=== PATIENT | male | born 1975 | race Caucasian/White ===

== ENCOUNTER → 2024-05-10 07:43 | Outpatient (REF) | payer BC, SELFPAY | LOC: HWRAD 07:43 | PROVIDERS: ATTENDING PHYSICIAN Internal Medicine; FAMILY PHYSICIAN Internal Medicine | DX: R76.8 Other specified abnormal immunological findings in serum (principal); R80.9 Proteinuria, unspecified | CPT/HCPCS: 74176 ==

== ENCOUNTER 2024-09-17 20:49 | Emergency (ER) | payer BC, SELFPAY ==
[2024-09-17 20:53] VITALS: BP 129/88
--- NOTE | 2024-09-17 23:37 | ED.GENMED ---
History of Present Illness
General
Chief Complaint: Nasal Problem
Source: patient
Exam Limitations: none
Time Seen by Provider: 09/17/24 23:29
Nursing documentation reviewed up to this point in time: agreed with
History of Present Illness
History of Present Illness:
48-year-old male presenting to the emergency department today with concerns of ongoing nasal congestion over the past 3 weeks. Seen in urgent care 4 days ago advised to use saline mist denies any fevers nausea vomiting diarrhea able to tolerate by
mouth.
Review of Systems
Review of Systems
Allergies reviewed?: Yes
All Other Systems: ROS reviewed and negative except as documented in HPI and ROS
Phy Exam
Physical Exam
Physical Exam:
GENERAL: Alert , in no apparent distress
EYE: pupils equal and reactive
NECK: Supple, no significant adenopathy.
ENT: Swollen boggy nasal turbinates, postnasal drip o/p clr, mmm.
CARDIAC: Regular rate and rhythm .
LUNGS: Clear breath sounds bilaterally, no acute respiratory distress, no wheezes/rales/rhonchi
ABDOMEN: Soft, without focal tenderness, no r/g, no cvat
NEUROLOGICAL: Alert and oriented, no focal neuro deficits
SKIN: Warm and dry, skin intact.
MUSCULOSKELETAL: No edema, well perfused.
PSYCH: Normal and appropriate interaction.
Course
Vital Signs
Initial and Last Documented VS:
Initial Vital Signs
Temp Pulse Resp BP Pulse Ox
98.5 F 83 16 129/88 96
09/17/24 20:53 09/17/24 20:53 09/17/24 20:53 09/17/24 20:53 09/17/24 20:53
Last Documented Vital Signs
Temp Pulse Resp BP Pulse Ox
98.5 F 83 16 129/88 96
09/17/24 20:53 09/17/24 20:53 09/17/24 20:53 09/17/24 20:53 09/17/24 20:53
MDM/Problems Addressed
MDM/Problems Addressed:
48-year-old male presenting to the emergency department today with concerns of upper respiratory symptoms over the past 3 weeks. Does have significant ongoing swelling to the nasal turbinates. Patient was given dose of steroid to help with
inflammation otherwise no evidence of infection no fevers no significant pain. Normal-appearing posterior pharynx other than some postnasal drip. Lungs are clear. Otherwise stable for outpatient follow-up. Return precautions given.
*Critical Care Note
Total Time (30-74mins, 75-104mins- exclusive of procedures): Not Applicable
ED Attending Note
-
Portions of this chart may have been created with voice recognition software.� Occasional wrong word or��sound alike� substitutions may have occurred due to the inherent limitations of voice recognition software.
Discharge Plan
Departure
Patient Disposition: Home (Routine Discharge)
Date of Disposition: 09/17/24
Time of Disposition: 23:39
Patient with high blood pressure during this ER visit?: No
Condition: Good
Covid-19: Not Applicable
Discharge Problem:
Acute rhinitis
Instructions: Cough, runny nose, and colds
Prescriptions:
New
prednisone 50 mg tablet
50 mg PO DAILY 4 Days Qty: 4 0RF
diphenhydramine HCl 25 mg capsule
25 mg PO HS PRN (Reason: Sleep) Qty: 7 0RF
No Action
Claritin-D 24 Hour 10-240 mg Tablet Extended Release 24 Hr
1 tab PO DAILY
fluticasone propionate [Flonase] 50 mcg/actuation [place],Suspension
1 spray INTRANASAL BID
Referrals:
Graeme Dove DO [Family Provider] -
Activity Restrictions/Additional Instructions:
You came to the emergency department today with concerns of ongoing upper respiratory symptoms. Please take the steroids as prescribed and also use the Benadryl to help with sleep. Please follow-up closely with your primary care doctor in the next
1 to 2 weeks. Return to the emergency department for any worsening, new or concerning symptoms.
Interventions
Interventions:
*Risk Screen - Suicide Last Done: 09/17/24 20:53
*Neglect/Abuse Screening Last Done: 09/17/24 20:53
Discharge Date and Time
Print Language: BERMUDIAN
[2024-09-17] MEDS: DECADRON 10 MG PO (23:47)
[2024-09-17 23:50] VITALS: BP 129/79
== END 2024-09-17 23:53 | disposition home or self-care (01) ==
LOC: EMR 20:49
PROVIDERS: EMERGENCY PHYSICIAN Emergency Medicine; FAMILY PHYSICIAN Internal Medicine
DX: J00 Acute nasopharyngitis [common cold] (principal)
CPT/HCPCS: 99282

== ENCOUNTER 2024-11-21 21:31 | Inpatient (IN) | payer BC, SELFPAY ==
[2024-11-21] VITALS (9 sets, daily range): BP systolic 109–143; BP diastolic 56–83; BMI 29.5
[2024-11-21 15:47] LABS: % Basophils 0.2 % (0-2); % Immature Granulocytes 0.7 % (0-0.5); % Lymphocytes 2.6 % (20.5-51.1); % Neutrophils 93.5 % (42.2-75.2); Absolute Immature Granulocytes 0.1 10^3/uL (0-0.05); Absolute Lymphocytes 0.5 10^3/uL (1.2-3.4); Absolute Monocytes 0.6 10^3/uL (0.1-0.6); Absolute Neutrophils 18.3 10^3/uL (1.4-6.5); Hematocrit 25.5 % (39.0-52.0); Hemoglobin 8.1 g/dL (13.0-18.0); Mean Corp Hgb Conc. 31.8 g/dL (33.0-37.0); Mean Corpuscular Hgb 24.6 pg (27.0-31.0); Mean Corpuscular Volume 77.5 fL (80.0-94.0); Mean Platelet Volume 10.3 fL (7.4-10.4); Nucleated Red Blood Cells % 0 % (-); Platelet Count 363 10^3/uL (130-400); Red Blood Cell Count 3.29 10^6/uL (4.70-6.10); Red Cell Dist. Width 14.5 % (11.5-14.5); White Blood Cell Count 19.5 10^3/uL (4.8-10.8)
[2024-11-21 15:58] LABS: Lactic Acid 1.4 mmol/L (0.7-2.0)
[2024-11-21 15:59] LABS: ALT (SGPT) 19 U/L (0-50); AST (SGOT) 20 U/L (17-59); Albumin 3.2 g/dl (3.5-5.0); Alkaline Phosphatase 76 U/L (38-126); Blood Urea Nitrogen 42 mg/dl (9-20); Calcium 8.2 mg/dl (8.4-10.2); Carbon Dioxide 18 mmol/L (22-30); Chloride 106 mmol/L (98-107); Glucose 147 mg/dl (70-99); Potassium 4.8 mmol/L (3.5-5.1); Sodium 135 mmol/L (135-145); Total Bilirubin 0.9 mg/dl (0.2-1.3); Total Protein 5.9 g/dl (6.3-8.2); eGFR 20.52
--- NOTE | 2024-11-21 17:58 | ED.GENMED ---
History of Present Illness
<Philippe Urbano Jr., PA-C - Last Filed: 11/21/24 19:33>
General
Chief Complaint: Abnormal Lab Value
Source: patient
Exam Limitations: none
Time Seen by Provider: 11/21/24 17:11
Nursing documentation reviewed up to this point in time: agreed with
History of Present Illness
History of Present Illness:
49-year-old male past medical history of kidney disease presenting to the emergency department today with concerns of hemoptysis over the past 2 days. Was recently in [place] last week flew home 3 days ago had a slight cough initially but
worsening cough shortness of breath and hemoptysis over the last 2 days. Worsening today. An outpatient chest x-ray showing multi focal pneumonia which he was told to go to the ER for. Additionally had outpatient lab with an elevated dimer of
5.87. He claims to have ongoing shortness of breath now no fevers no specific chest pain no vomiting.
Review of Systems
<hPilippe Urbano Jr., PA-C - Last Filed: 11/21/24 19:33>
Review of Systems
Allergies reviewed?: Yes
All Other Systems: ROS reviewed and negative except as documented in HPI and ROS
Phy Exam
<Philippe Urbano Jr., PA-C - Last Filed: 11/21/24 19:33>
Physical Exam
Physical Exam:
GENERAL: Alert , in no apparent distress
EYE: pupils equal and reactive
NECK: Supple, no significant adenopathy.
ENT: o/p clr, mmm.
CARDIAC: Regular rate and rhythm .
LUNGS: Clear breath sounds bilaterally, no acute respiratory distress, no wheezes/rales/rhonchi
ABDOMEN: Soft, without focal tenderness, no r/g, no cvat
NEUROLOGICAL: Alert and oriented, no focal neuro deficits
SKIN: Pale warm and dry, skin intact.
MUSCULOSKELETAL: No edema, well perfused.
PSYCH: Normal and appropriate interaction.
Course
<Philippe Urbano Jr., PA-C - Last Filed: 11/21/24 19:33>
Orders/Labs/Results
Orders:
Orders
11/21/24 15:32
Electrocardiogram (*1) Urgent
Reason for Study: Shortness of Breath
11/21/24 15:33
EKG- Treatment ONCE
11/21/24 15:38
Complete Blood Count/With Diff Urgent
Comprehensive Metabolic Panel Urgent
Lactic Acid Urgent
11/21/24 17:50
Venous Doppler Lwr Ext Bilat [US Periph Venous LOWER Ext Maurilio] Urgent
Comment:
Reason For Exam: hemoptysis elevated dimer, poor renal function
11/21/24 17:53
Azithromycin 500 mg/250 ml [Zithromax Infusion] 500 mg in 250 ml IV NOW
CefTRIAXone [Rocephin] 2,000 mg IV NOW STA
11/21/24 17:54
0.9% Sodium Chloride 500 ml [Nss] 500 ml IV BOLUS
11/21/24 18:05
Bladder Scan- Treatment ONCE
11/21/24 18:16
Sterile Water [Sterile Water For Injection] 20 ml .ROUTE .STK-MED
11/21/24 18:26
Type+Screen Urgent
COVID-19 Antigen Urgent
Source: Nasal Swab
Influenza A+B Rapid Molecular Urgent
CAROL Source: Nasal Swab
Specimen Description:
11/21/24 18:48
ABO2 Urgent
BBK Wristband Number:
Associate notified that ABO2 has been ordered: [id number]
Date: 11/21/24
Time: 18:49
Barback ID: [id number]
11/21/24 19:31
Urinalysis Reflex To Culture Urgent
Date Specimen was Collected: 11/21/24
Time Specimen was Collected: 19:30
Abnormal Lab Results
11/21/24
15:38
WBC 19.5 H 10^3/uL
(4.8-10.8)
RBC 3.29 L 10^6/uL
(4.70-6.10)
Hgb 8.1 L g/dL
(13.0-18.0)
Hct 25.5 L %
(39.0-52.0)
MCV 77.5 L fL
(80.0-94.0)
MCH 24.6 L pg
(27.0-31.0)
MCHC 31.8 L g/dL
(33.0-37.0)
Abs Immat Gran (auto) 0.1 H 10^3/uL
(0-0.05)
Absolute Neuts (auto) 18.3 H 10^3/uL
(1.4-6.5)
Absolute Lymphs (auto) 0.5 L 10^3/uL
(1.2-3.4)
Immature Gran % 0.7 H %
(0-0.5)
Neutrophils % 93.5 H %
(42.2-75.2)
Lymphocytes % 2.6 L %
(20.5-51.1)
Carbon Dioxide 18 L mmol/L
(22-30)
BUN 42 H mg/dl
(9-20)
Creatinine 3.5 H mg/dL
(0.7-1.3)
Glucose 147 H mg/dl
(70-99)
Calcium 8.2 L mg/dl
(8.4-10.2)
Total Protein 5.9 L g/dl
(6.3-8.2)
Albumin 3.2 L g/dl
(3.5-5.0)
11/21/24 15:38
11/21/24 15:38
Vital Signs
Initial and Last Documented VS:
Initial Vital Signs
Temp Pulse Resp BP Pulse Ox
98.0 F 87 16 143/80 94
11/21/24 15:29 11/21/24 15:29 11/21/24 15:29 11/21/24 15:29 11/21/24 15:29
Last Documented Vital Signs
Temp Pulse Resp BP Pulse Ox
98.8 F 77 27 114/78 94
11/21/24 17:46 11/21/24 18:30 11/21/24 18:30 11/21/24 18:00 11/21/24 18:30
<Daniel Schmidt MD - Last Filed: 11/21/24 19:41>
Orders/Labs/Results
Orders:
Orders
11/21/24 15:32
Electrocardiogram (*1) Urgent
Reason for Study: Shortness of Breath
11/21/24 15:33
EKG- Treatment ONCE
11/21/24 15:38
Complete Blood Count/With Diff Urgent
Comprehensive Metabolic Panel Urgent
Lactic Acid Urgent
11/21/24 17:50
Venous Doppler Lwr Ext Bilat [US Periph Venous LOWER Ext Maurilio] Urgent
Comment:
Reason For Exam: hemoptysis elevated dimer, poor renal function
11/21/24 17:53
Azithromycin 500 mg/250 ml [Zithromax Infusion] 500 mg in 250 ml IV NOW
CefTRIAXone [Rocephin] 2,000 mg IV NOW STA
11/21/24 17:54
0.9% Sodium Chloride 500 ml [Nss] 500 ml IV BOLUS
11/21/24 18:05
Bladder Scan- Treatment ONCE
11/21/24 18:16
Sterile Water [Sterile Water For Injection] 20 ml .ROUTE .STK-MED
11/21/24 18:26
Type+Screen Urgent
COVID-19 Antigen Urgent
Source: Nasal Swab
Influenza A+B Rapid Molecular Urgent
CAROL Source: Nasal Swab
Specimen Description:
11/21/24 18:48
ABO2 Urgent
BBK Wristband Number:
Associate notified that ABO2 has been ordered: [id number]
Date: 11/21/24
Time: 18:49
Barback ID: [id number]
11/21/24 19:31
Urinalysis Reflex To Culture Urgent
Date Specimen was Collected: 11/21/24
Time Specimen was Collected: 19:30
Abnormal Lab Results
11/21/24
15:38
WBC 19.5 H 10^3/uL
(4.8-10.8)
RBC 3.29 L 10^6/uL
(4.70-6.10)
Hgb 8.1 L g/dL
(13.0-18.0)
Hct 25.5 L %
(39.0-52.0)
MCV 77.5 L fL
(80.0-94.0)
MCH 24.6 L pg
(27.0-31.0)
MCHC 31.8 L g/dL
(33.0-37.0)
Abs Immat Gran (auto) 0.1 H 10^3/uL
(0-0.05)
Absolute Neuts (auto) 18.3 H 10^3/uL
(1.4-6.5)
Absolute Lymphs (auto) 0.5 L 10^3/uL
(1.2-3.4)
Immature Gran % 0.7 H %
(0-0.5)
Neutrophils % 93.5 H %
(42.2-75.2)
Lymphocytes % 2.6 L %
(20.5-51.1)
Carbon Dioxide 18 L mmol/L
(22-30)
BUN 42 H mg/dl
(9-20)
Creatinine 3.5 H mg/dL
(0.7-1.3)
Glucose 147 H mg/dl
(70-99)
Calcium 8.2 L mg/dl
(8.4-10.2)
Total Protein 5.9 L g/dl
(6.3-8.2)
Albumin 3.2 L g/dl
(3.5-5.0)
11/21/24 15:38
11/21/24 15:38
Vital Signs
Initial and Last Documented VS:
Initial Vital Signs
Temp Pulse Resp BP Pulse Ox
98.0 F 87 16 143/80 94
11/21/24 15:29 11/21/24 15:29 11/21/24 15:29 11/21/24 15:29 11/21/24 15:29
Last Documented Vital Signs
Temp Pulse Resp BP Pulse Ox
98.8 F 77 27 114/78 94
11/21/24 17:46 11/21/24 18:30 11/21/24 18:30 11/21/24 18:00 11/21/24 18:30
<Philippe Urbano Jr., ADRIAN - Last Filed: 11/21/24 19:33>
MDM/Problems Addressed
MDM/Problems Addressed:
49-year-old male presenting to the emergency department today with concerns of hemoptysis as well as shortness of breath and cough over the past few days. Outpatient chest x-ray showing pneumonia. He was started on IV antibiotics no fever here not
tachycardic pulse ox in the low 90s. Does have a white count of 19.5 and hemoglobin of 8.1. No old labs for comparison. Guaiac negative. 3 his renal function test are elevated GFR of 20 he claims it is typically in the 50s and 60s. Concerning
this unable to get a CT PE plan to get a VQ scan.
<Philippe Urbano Jr., PA-C - Last Filed: 11/21/24 19:33>
*Critical Care Note
Total Time (30-74mins, 75-104mins- exclusive of procedures): Not Applicable
ED Attending Note
<Philippe Urbano Jr., PA-C - Last Filed: 11/21/24 19:33>
-
Portions of this chart may have been created with voice recognition software.� Occasional wrong word or��sound alike� substitutions may have occurred due to the inherent limitations of voice recognition software.
<Daniel Schmidt MD - Last Filed: 11/21/24 19:41>
ED Attending Note
Patient seen and examined by attending physician: Yes
I performed the substantive portion of visit, reviewed & personally made and approve the management plan that is documented in note by myself or ISIAH.: Yes
ED Attending Note:
49-year-old male [place]. [place] like he inhaled some dust. Started having some shortness of breath. Became much worse overnight. Some cough some sputum with a small amount of
blood. No globs of blood. No pleuritic pain. History of some renal insufficiency.
On exam patient is mildly tachypneic at rest and very borderline pulse ox. However fully awake alert perfusing well.
Lungs with a few crackles right midlung. Mild tachypnea. Heart regular rate and rhythm no murmur. Abdomen soft and nontender. Extremity warm and dry and unremarkable.
Labs show a significant anemia. Does not describe melanotic or bright red blood per rectum. We will do a rectal exam however. Previous labs with a significant change in his hemoglobin. Significant leukocytosis. Significant change in creatinine.
Will check urine postvoid residual. Will contact nephrology. Start antibiotics. D-dimer positive as an outpatient. Will get leg ultrasounds.. Fairly unlikely to be pulmonary emboli given the pattern on the x-ray. With hemoptysis we will hold
on anticoagulation at this time. Nuclear scan in the morning.
Discharge Plan
Departure
Patient Disposition: Admit
Date of Disposition: 11/21/24
Time of Disposition: 19:33
Admit to: Telemetry
Admit to doctor: Ekta
Presentation/result/management discussed w/ accepting MD/DO: Hospitalist
Patient with high blood pressure during this ER visit?: No
Condition: Fair
Covid-19: Not Applicable
Discharge Problem:
Pneumonia, Acute renal failure, Anemia, Cough with hemoptysis
Prescriptions:
No Action
Claritin-D 24 Hour 10-240 mg Tablet Extended Release 24 Hr
1 tab PO DAILY
fluticasone propionate [Flonase] 50 mcg/actuation [place],Suspension
1 spray INTRANASAL BID
prednisone 50 mg tablet
50 mg PO DAILY 4 Days Qty: 4 0RF
diphenhydramine HCl 25 mg capsule
25 mg PO HS PRN (Reason: Sleep) Qty: 7 0RF
Referrals:
Kwame Sargent DO [Family Provider] -
Interventions
Interventions:
*Risk Screen - Suicide Last Done: 11/21/24 15:29
*General Assessment Last Done: 11/21/24 17:51
*Neglect/Abuse Screening Last Done: 11/21/24 15:29
*ED COVID-19 Vaccine History Last Done: 11/21/24 17:51
Discharge Date and Time
Print Language: SINHALA
[2024-11-21] MEDS: NSS 500 IV (18:23)
[2024-11-21] MEDS: ROCEPHIN 2000 MG IV (18:25)
[2024-11-21] MEDS: ZITHROMAX INFUSION 250 IV (18:25)
[2024-11-21 19:02] LABS: COVID-19 Antigen Negative (Negative)
[2024-11-21 19:39] LABS: Urine Albumin 4+ (Neg - Trace); Urine Bilirubin Negative (Negative); Urine Character Slightly Cloudy (Clear); Urine Color Yellow; Urine Glucose 1+ (Negative); Urine Ketone Negative (Negative); Urine Leukocyte Negative (Negative); Urine Nitrite Negative (Negative); Urine Occult Blood 4+ (Negative); Urine Urobilinogen Negative (Neg - 1+)
[2024-11-21 20:01] LABS: Urine Squamous Cell 0-2 /LPF (Few)
[2024-11-21 20:02] LABS: Urine Bacteria Moderate (Negative); Urine Red Blood Cell 30-40 /HPF (0-2); Urine White Cell 0-2 /HPF (0-5)
--- NOTE | 2024-11-21 20:43 | HPS.HSE ---
Family Physician
-
Family Physician: Kwame Sargent,
Chief Complaint
-
Hemoptysis shortness of breath
History of Present Illness
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
Patient reported that he actually has been having intermittent upper respiratory symptoms for the last 3 months, and has been seen by multiple physicians and treated symptomatically. Patient reports that he was diagnosed with FSGS several years ago
and currently has had a stable renal function with a GFR of around 55-60 on his most recent test. Reported that FSGS was thought to be secondary and due to his weight and is the 80 pound weight loss since then. He said he did have a positive
anti-AZ-3 and and MPO antibodies in the past but they felt that these were not pathogenic at that time. Patient himself denies any hematuria. Denies any known sick contacts. He reported that his current symptoms began on Thursday while he was
playing golf. He appeared to have been exposed to some fumes and then started coughing. He reports that he had mostly watery eyes, runny nose and some congestion. He took some Benadryl but without much relief. He then flew back to [place]
from [place] on Thursday. Continued to have shortness of breath on arrival in [place]. He reports that overnight he developed a cough that is productive of some hemoptysis and whitish phlegm. Denies having chest pain.
Saw PMD today we did an x-ray and was diagnosed with lobe pneumonia. Due to his shortness of breath and recent flight patient was sent to the emergency department for further evaluation.
Here in the emergency department he was satting 94% and required 2 L nasal cannula. He was afebrile. Blood pressure was 114/78 with a pulse of 77. Respiratory rate was 25. COVID test was negative, flu test was negative. He had a white count of
19,000, hemoglobin was 8.1 platelet count 363. His electrolytes were stable. BUN/creatinine were notable for being 42 and 3.5 respectively. D-dimer was elevated. Patient had a bilateral lower extremity Doppler studies that were negative for DVT.
Medical History
Past Medical History
Past Medical History: Reports GERD and Renal Failure (FSGS)
Past Surgical History: Reports Other (Kidney biopsy)
Social History
Tobacco: Non-smoker
Alcohol: None
Personal:
Living: With Family
Employment: Employed
Family History
Family History: Not pertinent
Allergies / Home Medications
Allergies reflects when Allergies were last updated in [facility].
Home Medications with original date entered in [facility]
Allergy/Medication List:
Allergies
Allergy/AdvReac Type Severity Reaction Status Date / Time
No Known Allergies Allergy Verified 11/21/24 15:31
Home Medications
fluticasone propionate 50 mcg/actuation nasal spray,suspension 1 spray intranasal DAILY 09/17/24
amoxicillin 875 mg-potassium clavulanate 125 mg tablet 1 tab PO BID 11/21/24
azelastine 137 mcg (0.1 %) nasal spray 1 spray intranasal DAILY 11/21/24
azithromycin 250 mg tablet 250 mg PO DAILY 11/21/24
diphenhydramine HCl 50 mg capsule 50 mg PO HSPRN PRN inflammation/sleep 11/21/24
famotidine 20 mg tablet (Pepcid AC) 20 mg PO DAILYPRN PRN reflux 11/21/24
loratadine 10 mg tablet (Claritin) 10 mg PO DAILYPRN PRN inflammation 11/21/24
Review of Systems
-
History Source: Patient
Constitutional: Reports No Symptoms
Respiratory: Reports Cough, Hemoptysis and Trouble Breathing
Cardiac: Reports No Symptoms
Abdomen/GI: Reports No Symptoms
: Reports No Symptoms
Musculoskeletal: Reports No Symptoms
Skin: Reports No Symptoms
Neurological: Reports No Symptoms
Endocrine: Reports No Symptoms
Hematologic/Lymphatic: Reports No Symptoms
Psych: Reports No Symptoms
Physical Exam
Vital Signs
Vital Signs
Temp Pulse Resp BP Pulse Ox
98.8 F 86 26 125/56 93
11/21/24 17:46 11/21/24 20:15 11/21/24 20:15 11/21/24 20:00 11/21/24 20:00
Physical Exam
General: Well Developed, Well Nourished and Conversant
HEENT: NormoCephalic, Anicteric, Moist mucous membranes, Atraumatic and PERRLA
Respiratory: Crackles
Cardiac: S1/S2 and Regular Rhythm
Breast: Deferred by me
GI: Soft, Non Tender, Non Distended and Normal Bowel Sounds
Rectal: Deferred by Provider
Genito-urinary: Deferred by me
Musculoskeletal: No Clubbing, No Cyanosis and No Edema
Neuro: AO x 3 and Nonfocal/grossly intact
Hematologic/Lymphatic: No Lymphadenopathy
Psych: Calm
Laboratory Results
-
11/21/24 15:38
11/21/24 15:38
Laboratory Results
Lactic Acid 1.4 mmol/L (0.7-2.0) 11/21/24 15:38
Total Bilirubin 0.9 mg/dl (0.2-1.3) 11/21/24 15:38
AST 20 U/L (17-59) 11/21/24 15:38
ALT 19 U/L (0-50) 11/21/24 15:38
Alkaline Phosphatase 76 U/L (38-126) 11/21/24 15:38
Data Reviewed
-
Diagnostic Radiology: Image Personally Visualized and interpreted and Report Reviewed by me
Ultrasound: Report Reviewed by me
Lab Data: Labs Reviewed by me
Old Records: Reviewed
Impression/Plan
-
IMPRESSION:
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
with whitish sputum. Comes to the emergency department slightly hypoxic, has a right-sided patchy opacity and possibly bilateral patchy opacities on chest x-ray. Viral testing negative, had additional abnormal abnormalities with elevated WBCs, NESTOR
with a creatinine of 3.5 and elevated D-dimer. Hgb 11.
PLAN:
1. SOB - Cough, patchy opacities, hypoxia concerning for pneumonia. Has WBC of 19 which raises PNA suspicion. Elevated D-dimer but negative LE DVT on U/S. Cannot perform CT PE given NESTOR. No chest pain. Cannot rule out a pulmonary renal syndrome
such as vasculitis, PIGN or antiGBM given NESTOR, hemopytsis and h/o + anca ab
- admit to IMU for now
- continue ceftriaxone/azithromycin IV
- sputum culture
- check legionella and strep ab
- check procalcitonin to rule out non-infectous process
- supplemental oxygen and supportive care
- pulmonary consultation
2. NESTOR. Cr 3.5, no known prior in system but patient reports GFR around 55 at baseline. Non-oliguric. Denies hematuria. No h/o dehydration and BUN only 42.
- question intrarenal disease given h/o FSGS and anca
- obtain u/a urine Na/Cr and urine protein/cr
- IV fluids
- renal u/s
- check esr/crp, elizabeth, c3/c4, anca serologies, post-strep ab, spep/upep for now
- strict i/os
- nephrology consultation as patient may need biopsy
3. Anemia - Hgb 8.1MCV 77. No priors. Unlikely due to scant hemoptysis. ACD vs DAJUAN
- check iron panel for now
- type and screen
- plan to transfuse for Hgb > 7
DVT PPX - hep sq
Code status - full code
[2024-11-21] MEDS: LR 1000 IV (22:51)
[2024-11-22] VITALS (16 sets, daily range): BP systolic 121–141; BP diastolic 72–89
[2024-11-22 02:34] LABS: Urine Albumin 4+ (Neg - Trace); Urine Bilirubin Negative (Negative); Urine Character Clear (Clear); Urine Color Yellow; Urine Glucose Negative (Negative); Urine Ketone Negative (Negative); Urine Leukocyte Negative (Negative); Urine Nitrite Negative (Negative); Urine Occult Blood 4+ (Negative); Urine Specific Gravity 1.015 (<1.030); Urine Urobilinogen Negative (Neg - 1+)
[2024-11-22 02:39] LABS: Urine Sodium 81 mmol/L (30-90)
[2024-11-22 02:50] LABS: Protein/creatinine Ratio 3.8; Urine Protein 428 mg/dl
--- NOTE | 2024-11-22 03:55 | PTCARENOTE ---
Rec'd pt from ED RN, NSR on monitoring equipment. 92-94% on 2L. Continues with hemoptysis, thin bloody sputum, slightly tachypneic. Denies pain, reports some slight tightness in chest, but is coughing frequently. Urine specimens sent to lab along
with sputum sample. Call oconnell within reach. Pt demonstrates ability to make needs known. Care ongoing.
[2024-11-22 04:37] LABS: INR 1.23; PT 15.8 Sec (11.4-14.6)
[2024-11-22 04:52] LABS: Blood Urea Nitrogen 42 mg/dl (9-20); Calcium 7.9 mg/dl (8.4-10.2); Carbon Dioxide 20 mmol/L (22-30); Chloride 107 mmol/L (98-107); Estimated Creatinine Clearance 30 ml/min; Glucose 107 mg/dl (70-99); Potassium 4.8 mmol/L (3.5-5.1); Sodium 135 mmol/L (135-145); eGFR 21.25
[2024-11-22 04:53] LABS: Urine Granular Cast >15 /LPF (0); Urine Red Blood Cell 80-90 /HPF (0-2)
[2024-11-22 04:54] LABS: Urine Bacteria Moderate (Negative); Urine White Cell 26-30 /HPF (0-5)
[2024-11-22 05:35] LABS: Hematocrit 20.1 % (39.0-52.0); Hemoglobin 6.5 g/dL (13.0-18.0); Mean Corp Hgb Conc. 32.3 g/dL (33.0-37.0); Mean Corpuscular Hgb 25.4 pg (27.0-31.0); Mean Corpuscular Volume 78.5 fL (80.0-94.0); Mean Platelet Volume 10.5 fL (7.4-10.4); Platelet Count 292 10^3/uL (130-400); Red Blood Cell Count 2.56 10^6/uL (4.70-6.10); Red Cell Dist. Width 14.5 % (11.5-14.5); White Blood Cell Count 11.4 10^3/uL (4.8-10.8)
--- NOTE | 2024-11-22 05:44 | W.PN.UPDATE ---
Update Note
Progress Note Update
hgb 6.5 hct 20.1 Patient asymptomatic, stable VS 98.6 80 22 91-94 % 6l 122/77. Type and screen done, Blood consent in chart, Will transfuse 1 unit.
[2024-11-22] MEDS: ROBITUSSIN DM 5 ML PO (05:50)
--- NOTE | 2024-11-22 06:36 | PTCARENOTE ---
Pt c/o persistent harsh cough which continues to produce bloody mucous. PIPE THREADER contacted. One time dose of medicine given per NOV.
[2024-11-22 07:29] LABS: Erythrocyte Sed Rate 96 mm/hour (0-20)
[2024-11-22] MEDS: LR 1000 IV ×2 (08:49→23:54)
[2024-11-22] MEDS: MUCINEX 600 MG PO ×2 (08:49→19:32)
--- NOTE | 2024-11-22 09:05 | CON.PUL ---
Consultation
Consultation Request
Date/Time Consultation Requested: 11/22/24
Date/Time Consultation Performed: 11/22/24
Performing Provider: Cristopher
Reason for Consultation: Abnormal CT, SOB
Medical History
-
History of Present Illness:
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 Notes sinus
symptoms as well. Saw OP care team and obtained CXR showing PNA. Sent to ER. 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
On arrival, noted to be 94% and requiring 2 L. COVID test was negative, flu test was negative. He had a white count of 19,000, hemoglobin was 8.1 platelet count 363. BUN/creatinine were notable for being 42 and 3.5 respectively. D-dimer was
elevated. Patient had a bilateral lower extremity Doppler studies that were negative for DVT. CT chest wo performed due to CKD, extensive PNA noted. Hb notably dropped from 8.1 to 6.5.
Past Medical History
Past Medical History: Other (see list below)
Social History
Tobacco: Non-smoker (notes second hand exposure)
Alcohol: None
Drug: None
Occupational Exposures: [employer]ica, but notes he has protective wear
Family History
Family History: Reviewed & Not Pertinent
Allergies / Home Medications
Allergies
Allergy/AdvReac Type Severity Reaction Status Date / Time
No Known Allergies Allergy Verified 11/21/24 15:31
Home Medications
�Medication �Instructions �Recorded �Confirmed �Last Taken �Type
fluticasone propionate 50 1 spray intranasal DAILY 09/17/24 11/21/24 Unknown History
mcg/actuation nasal
spray,suspension
amoxicillin 875 mg-potassium 1 tab PO BID 11/21/24 11/21/24 11/21/24 History
clavulanate 125 mg tablet
azelastine 137 mcg (0.1 %) nasal 1 spray intranasal DAILY 11/21/24 11/21/24 Unknown History
spray
azithromycin 250 mg tablet 250 mg PO DAILY 11/21/24 11/21/24 11/21/24 History
500 mg
diphenhydramine HCl 50 mg capsule 50 mg PO HSPRN PRN 11/21/24 11/21/24 Unknown History
inflammation/sleep
famotidine 20 mg tablet (Pepcid AC) 20 mg PO DAILYPRN PRN reflux 11/21/24 11/21/24 Unknown History
loratadine 10 mg tablet (Claritin) 10 mg PO DAILYPRN PRN inflammation 11/21/24 11/21/24 Unknown History
Review of Systems
-
History Source: Patient
All other systems: Negative unless noted
Vitals / Labs / Diagnostic Testing
Vital Signs
Temp Pulse Resp BP Pulse Ox
98.6 F 72 30 122/77 6
11/22/24 07:29 11/22/24 06:00 11/22/24 06:00 11/22/24 04:00 11/22/24 08:15
Lab Data
11/22/24 04:08
11/22/24 04:08
Laboratory Results
11/22/24
04:08
PT 15.8 H
INR 1.23
Microbiology
11/22/24 02:16 Urine Legionella Urinary Antigen - Final
Negative for Legionella pneumophila Serogroup 1 antigen.
A negative result does not rule out the possiblity of
Legionella infection due to other serogroups or species of
Legionella. Clinical correlation is recommended.
11/22/24 02:16 Urine Streptococcus pneumoniae Antigen (M - Final
Negative for Streptococcus pneumoniae antigen.
A negative result does not exclude infection with
Streptococcus pneumoniae. Clinical correlation is
recommended.
11/21/24 18:26 Nasal Swab Influenza Types A & B (SHREE) - Final
Negative for Influenza A & B, NAAT
Negative results must be combined with clinical observations
and patient history.
Nucleic Acid Amplification test (NAAT)performed on the
[employer] platform.
Diagnostic Testing:
Physical Exam
-
HEENT: Normocephalic, Anicteric and Moist Mucous Membranes
Cardiovascular: S1/S2 and Regular Rhythm
Respiratory: Rales and Non-Labored Respirations
GI: Soft, Non Distended and Non Tender
Neurology: Awake, Alert, Oriented and No Motor Deficits
Skin: Warm, Dry and Good Color
General: Comfortable and Other (NAD)
Assessment
-
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 Notes sinus
symptoms as well. Saw OP care team and obtained CXR showing PNA. Sent to ER. 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 On arrival, noted to be 94% and requiring 2 L. COVID test was negative, flu test was negative. He had
a white count of 19,000, hemoglobin was 8.1 platelet count 363. BUN/creatinine were notable for being 42 and 3.5 respectively. D-dimer was elevated. Patient had a bilateral lower extremity Doppler studies that were negative for DVT. CT chest wo
performed due to CKD, extensive PNA noted. Hb notably dropped from 8.1 to 6.5. We are consulted for evaluation.
Acute hypoxic respiratory failure
Acute diffuse alveolar hemorrhage (DAH)
Hemoptysis, cough/productive
SOB
Abnormal CT scan
Suspect acute autoimmune flare
NESTOR on CKD
Acute blood loss anemia 2/2 DAH
Conditions present TOWER ATTENDANT
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
s/p renal biopsy 2021
Microscopic hematuria
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
Positive EARNEST (antinuclear antibody)
Seasonal allergies
Overweight
GERD
Covid 2020
Plan
Hypoxemia noted on arrival, was placed on 2L, sats 92%
Worsening this AM, now 91% on 6L
Home O2 evaluation will be needed when recovering
Not known to be on home O2, no prior known history of lung disease
Suspect patient has acute DAH but appearance of CT, anemia and hemoptysis on history
We discussed bronchoscopy to evaluate for this, but based on his presentation thus far it is highest likelihood
Will start IV steroids pulse dose, reviewed with renal
We will repeat CXR in AM, if not improving or clinically worsening we can consider diagnostic procedure to r/o infection
Other imaging reviewed--clear lung bases on CT AP in 2023
Renal disease known to renal team
Had not been on immunosuppressives since diagnosis, s/p biopsy in 2021
NESTOR on CKD noted as well
Renal following for further recs
Can consider plasmapheresis if not responding to steroids
Anemia noted, no other outward signs of bleeding
Quantify hemoptysis
Sputum culture sent
Check proBNP as well for completeness
No prior ECHO for review, no history of cardiac disease
Monitor on telemetry
Smoking history is not noted
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
Will need outpatient pulmonary evaluation in our office for PFTs and 6MWT
Reviewed with patient
Discussed events/plan of care with care team
We will follow
Diagnostic Data
Chest X-Ray: 11/21/24- Bilateral opacities including patchy opacities, most prominent in the right upper lobe, at least in part suggesting pneumonia/pneumonitis.
CT Scan: CHEST 11/21/24- Bilateral parenchymal airspace opacities, slightly greater on the right compared to the left, and these opacities relatively spare the periphery of both lungs. Main differential considerations of pneumonia and/or alveolar
hemorrhage, and findings may represent a combination of these processes. Pulmonary alveolar proteinosis is also a condition that is reported to have relative sparing the periphery of both lungs. No evidence for significant pleural effusion. No
evidence for significant pericardial effusion.
AP 05/10/24- 1 mm nonobstructing calculus in the lower pole of the left kidney. No right nephrolithiasis. No obstructive uropathy. Multilevel lumbar spondylosis with minimal 2 mm grade 1 retrolisthesis of L5 relative to S1. Lung cases are clear.
Duplex 11/21/24- No evidence of deep venous thrombosis bilaterally.
Echo:
PFT's:
Reports and relevant images were personally reviewed.
Total time spent on this consultation __81__ minutes which includes review of history, physical exam, medications, laboratory data, personal review of imaging, extensive review of outpatient records, discussion with care team and respiratory therapy.
--- NOTE | 2024-11-22 09:15 | PTOTSP ---
Received order for PT from the ED and reviewed chart. Noted drop in hgb overnight to 6.5. For transfusion. Will hold PT today.
--- NOTE | 2024-11-22 09:17 | W.CON.NEPH ---
Consultation
-
Date/Time Consultation Requested: 11/21/242240
Date/Time Consultation Performed: 11/22/24 0940
Requesting Provider: Froylan Burch
Performing Provider: Valerie Melchor
Reason for Consultation: NESTOR
Medical History
-
Chief Complaint: Hemoptysis shortness of breath
History of Present Illness:
49-year-old with past medical history significant for CKD2 vs 3 baseline cr 1.1-1.4 thought to be secondary to secondary FSGS(wt) diagnosed in 2021, presents to the emergency department with approximately 2 days of cough and shortness of breath.
His FSGS was well controlled with out meds, he also had weakly positive PR3 for which he saw Rheumatology and felt no additional treatment needed at that time with baseline U PCR Of 300mg/gm of cr as of February 2024. He denies any gross hematuria or
dysuria. No skin rash or fevers. Denies any known sick contacts. He reported that his current symptoms began on Thursday while was playing golf. He has been battling with sinus issues too for some time. He appeared to have been exposed to some
fumes and then started coughing. He then flew back to [place] from [place] on Thursday. Continued to have shortness of breath on arrival in [place]. He reports that overnight he developed a cough that is productive of some hemoptysis
and whitish phlegm, saw PCP and CXR with concern of PNA subsequently sent to ER. On arrival cr up at 3.5, CT chest shows possible alveolar hemorrhage. Denies having chest pain.
COVID test was negative, flu test was negative. WBC 19,000, hemoglobin was 8.1 platelet count 363. hb decreased to 6.5 this morning. Patient had a bilateral lower extremity Doppler studies that were negative for DVT.
Past Medical History
GERD, FSGS secondary
Social History
Tobacco: Non-Smoker
Alcohol: None
Personal:
Living: With Family
Employment: Employed
Family History
Family History: Not Pertinent
Allergies / Home Medications
Allergy/AdvReac Type Severity Reaction Status Date / Time
No Known Allergies Allergy Verified 11/21/24 15:31
�Medication �Instructions �Recorded �Confirmed �Type
fluticasone propionate 50 1 spray intranasal DAILY 09/17/24 11/21/24 History
mcg/actuation nasal
spray,suspension
amoxicillin 875 mg-potassium 1 tab PO BID 11/21/24 11/21/24 History
clavulanate 125 mg tablet
azelastine 137 mcg (0.1 %) nasal 1 spray intranasal DAILY 11/21/24 11/21/24 History
spray
azithromycin 250 mg tablet 250 mg PO DAILY 11/21/24 11/21/24 History
diphenhydramine HCl 50 mg capsule 50 mg PO HSPRN PRN 11/21/24 11/21/24 History
inflammation/sleep
famotidine 20 mg tablet (Pepcid AC) 20 mg PO DAILYPRN PRN reflux 11/21/24 11/21/24 History
loratadine 10 mg tablet (Claritin) 10 mg PO DAILYPRN PRN inflammation 11/21/24 11/21/24 History
Review of Systems
-
All complete 12 point ROS have been inquired and found negative other than stated in HPI
Physical Exam
Vital Signs
Vital Signs
Temp Pulse Resp BP Pulse Ox
98.6 F 72 30 122/77 6
11/22/24 07:29 11/22/24 06:00 11/22/24 06:00 11/22/24 04:00 11/22/24 08:15
Lab Results
WBC 11.4 10^3/uL (4.8-10.8) H 11/22/24 04:08
RBC 2.56 10^6/uL (4.70-6.10) L 11/22/24 04:08
Hgb 6.5 g/dL (13.0-18.0) L* 11/22/24 04:08
Hct 20.1 % (39.0-52.0) L* 11/22/24 04:08
Plt Count 292 10^3/uL (130-400) 11/22/24 04:08
Sodium 135 mmol/L (135-145) 11/22/24 04:08
Potassium 4.8 mmol/L (3.5-5.1) 11/22/24 04:08
Chloride 107 mmol/L (98-107) 11/22/24 04:08
Carbon Dioxide 20 mmol/L (22-30) L 11/22/24 04:08
BUN 42 mg/dl (9-20) H 11/22/24 04:08
Creatinine 3.4 mg/dL (0.7-1.3) H 11/22/24 04:08
eGFR 21.25 11/22/24 04:08
Glucose 107 mg/dl (70-99) H 11/22/24 04:08
Calcium 7.9 mg/dl (8.4-10.2) L 11/22/24 04:08
Albumin 3.2 g/dl (3.5-5.0) L 11/21/24 15:38
Physical Exam
General: Awake, Alert, Oriented, AOx3, No Distress and Nontoxic
HEENT: Anicteric, Conjunctivae Clear, Dentition Intact, Facial Symmetry, Neck Supple and No JVD
Respiratory: Clear, Normal Excursion and Nonlabored Respirations
Cardiac: S1/S2 and Regular Rate/Rhythm
Breast: Deferred by me
Abdomen: Soft, Nontender and Nondistended
Musculoskeletal: No Cyanosis and No Edema
Skin: No Rash
Neuro: Nonfocal/Grossly Intact
Psych: Mood/afflect pleasant, Insight/judgement good and Appropriate
Data Reviewed
-
Radiology: Report Reviewed by me, Discussed with Patient and Discussed with Family
Labs: Labs Reviewed by me, Discussed with Physician, Discussed with Nurse, Discussed with Patient and Discussed with Family
Assessment/Plan
-
IMP:
Acute hypoxic respiratory failure with hemoptysis
Acute diffuse alveolar hemorrhage (DAH)
NESTOR with CKD 3-baseline cr 1.1-1.4, suspect acute pulmonary�renal syndrome
Biopsy-proven FSGS 2021
baseline weakly positive PR3
Acute blood loss anemia secondary to alveolar hemorrhage.
Microcytosis
GERD
Plan:
A/w hemoptysis and sob
noted alveolar hemorrhage and NESTOR suspect of pulm renal syndrome
NESTOR-cr no sog change, fortunately non oliguric-monitor UOP
UA with hematuria and U PCR 3.8gm/gm of cr
serologies sent, also send anti GBM and hepatitis panel
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
spoke with pulm , will start pulse steroids 500mg daily for 3 days and then prednisone 60-80mg daily
likely plan K biopsy once resp status stabilizes
depending on course consider plasmapheresis
BP stable
no emergent need of dialysis
prn transfusion for anemia
d/w pt and in detail
d/w pulm and primary
CC time spent 40min
[2024-11-22] MEDS: SOLU-MEDROL 108 MG IV (10:54)
--- NOTE | 2024-11-22 11:34 | PTCARENOTE ---
Pt's assessment as documented. Aox3. NSR on tele monitor. Unit of blood transfusing; pt tolerating at this time. Pt and at bedside, updated on POC.
--- NOTE | 2024-11-22 11:35 | W.PN.HOSP.TC ---
Today's Communication/Plan
-
See plan
Assessment / Plan
Assessment / Plan
Impression:
Acute hypoxic respiratory failure
Acute diffuse alveolar hemorrhage.
� Ongoing hemoptysis.
NESTOR on CKD, nephritic syndrome.
Acute blood loss anemia.
Conditions prior to admission:
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
� C-ANCA/Anti-LA-3 positive, EARNEST positive reported at the lower titers.
GERD.
History of COVID.
Overweight with BMI of 29
Plan:
Acute hypoxic respiratory failure with hemoptysis, NESTOR, nephritic syndrome suggestive of acute pulmonary�renal syndrome
Going hemoptysis and CT findings consistent with diffuse alveolar hemorrhage
Continue oxygen supplementation, currently on 5 L of nasal cannula with no evidence of distress
Quantify hemoptysis
Initiated empirically on antibiotics, although less likely infection. Continue pending cultures.
Will review serology pending
Given high clinical suspicion for autoimmune process, initiated on pulse dose of systemic steroid Solu-Medrol 500 mg IV daily for at least 3 days. Monitor response closely
Follow-up chest x-ray
Check echocardiogram
NESTOR.
CKD stage II�3 with baseline creatinine 1.5.
Biopsy-proven FSGS
Current findings consistent with nephritic syndrome
Serology pending.
Check urine protein level.
May require repeat renal biopsy
Acute blood loss anemia secondary to alveolar hemorrhage.
Microcytosis
Check hemolytic panel for completeness
Check iron studies
Transfuse to keep hemoglobin above 8.
Anticipated Discharge: > 48 hours
Subjective/Interval History
-
Date of Service: November 22, 2024
Objective Data
-
Labs:
Laboratory Results
11/22/24
04:08
WBC 11.4 H
Hgb 6.5 L*
Hct 20.1 L*
Plt Count 292
PT 15.8 H
INR 1.23
Sodium 135
Potassium 4.8
Chloride 107
Carbon Dioxide 20 L
BUN 42 H
Creatinine 3.4 H
Glucose 107 H
Calcium 7.9 L
Vital Signs:
Vital Signs
Temp Pulse Resp BP Pulse Ox
99.0 F 78 31 135/81 92
11/22/24 11:29 11/22/24 11:29 11/22/24 11:29 11/22/24 11:29 11/22/24 11:18
I&O
11/21/24 11/22/24 11/23/24
06:59 06:59 06:59
Intake Total 0 / 0
Output Total 725 / 725 650 / 650
Balance -725 / -725 -650 / -650
Physical Exam
-
General: Well Developed and No Apparent Distress
HEENT: Normocephalic, Atraumatic and Moist Mucous Membranes
Respiratory: Clear to Auscultation
Cardiac: Regular Rhythm and S1/S2; Negative Murmur, Rub or Gallop
GI: Soft, Nontender, Nondistended and Normal Bowel Sounds; Negative Organomegaly
Rectal: Deferred by Provider
Musculoskeletal: No Clubbing, No Cyanosis and No Edema
Skin: Negative Rash
Neuro: Nonfocal/Grossly Intact
[2024-11-22 11:56] LABS: NT-proBNP 243 pg/ml
[2024-11-22 12:27] LABS: Total Iron Binding Capacity 239 ug/dl (261-462)
[2024-11-22 12:37] LABS: Iron < 20 ug/dl (49-181)
[2024-11-22 16:32] LABS: LDH 186 U/L (120-246)
--- NOTE | 2024-11-22 16:44 | CM ---
Patient with Dx Acute hypoxic respiratory failure, DAH/Diffuse Alveolar Hemorrhage. O2 6L. Receiving IVF, IV Abx, IV Steroids. PT held.
Met with patient and Portia, with patient's mother and Portia's parents present;
the patient resides with his in a 4 story townhouse with elevator.
The patient was independent in ADLs and ambulation.
He was active, working and worked out at a gym 4x/week and golfed 2x/week.
The patient has no DME, prior VN.
PCP - Kwame Sargent
Pharmacy - [facility], [place]
CM continuing to follow.
Plan follow O2 needs, and follow up after seen by PT.
Plan probable home.
[2024-11-22 16:56] LABS: Reticulocyte Count 1.8 % (0.4-2.8)
[2024-11-22] MEDS: ROCEPHIN 1000 MG IV (18:12)
[2024-11-22] MEDS: ZITHROMAX INFUSION 250 IV (18:12)
[2024-11-22] MEDS: STERILE WATER FOR INJECTION 10 ML IV (18:13)
--- NOTE | 2024-11-22 22:32 | PTCARENOTE ---
Addendum entered by Teri Balderas 11/23/24 02:02:
O2 needs continue to increase, KEVON Otero contacted via TT regarding increasing O2 needs. Pt continues to deny complaints. Pt did accidentally dislodge MF NC and desat to 70s on RA. MF cannula replaced with improvement to 90%. Awaiting new orders.
Original Note:
SaO2 needs increasing throughout the night, pt does mouth breathe while sleeping. Desat to 84-85 on 7L NC, switched to 10L MF cannula with improvement to 90%. Pt denies complaints, states he feels much better than yesterday. This RN educated pt on
ordered PRNs, pt denies at this time stating that he feels ok right now, but will alert staff if anything changes. Call oconnell within reach.
[2024-11-23] VITALS (15 sets, daily range): BP systolic 102–155; BP diastolic 62–92
[2024-11-23 02:56] LABS: % Basophils 0.1 % (0-2); % Immature Granulocytes 0.4 % (0-0.5); % Lymphocytes 2.5 % (20.5-51.1); % Monocytes 1.7 % (1.7-9.3); % Neutrophils 95.3 % (42.2-75.2); Absolute Immature Granulocytes 0.1 10^3/uL (0-0.05); Absolute Lymphocytes 0.3 10^3/uL (1.2-3.4); Absolute Monocytes 0.2 10^3/uL (0.1-0.6); Absolute Neutrophils 12.8 10^3/uL (1.4-6.5); Hematocrit 21.5 % (39.0-52.0); Hemoglobin 6.8 g/dL (13.0-18.0); Mean Corp Hgb Conc. 31.6 g/dL (33.0-37.0); Mean Corpuscular Hgb 24.5 pg (27.0-31.0); Mean Corpuscular Volume 77.6 fL (80.0-94.0); Mean Platelet Volume 10.3 fL (7.4-10.4); Nucleated Red Blood Cells % 0 % (-); Platelet Count 302 10^3/uL (130-400); Red Blood Cell Count 2.77 10^6/uL (4.70-6.10); Red Cell Dist. Width 14.4 % (11.5-14.5); White Blood Cell Count 13.4 10^3/uL (4.8-10.8)
[2024-11-23 03:02] LABS: ALT (SGPT) 13 U/L (0-50); AST (SGOT) 14 U/L (17-59); Albumin 2.5 g/dl (3.5-5.0); Alkaline Phosphatase 62 U/L (38-126); Direct Bilirubin 0.2 mg/dl (0.0-0.4); Total Bilirubin 0.5 mg/dl (0.2-1.3); Total Protein 4.8 g/dl (6.3-8.2)
[2024-11-23 03:43] LABS: HIV Combo Negative (Negative)
--- NOTE | 2024-11-23 04:12 | PTCARENOTE ---
Hgb 6.8. PRBC transfusing now.
--- NOTE | 2024-11-23 07:05 | W.PN.UPDATE ---
Update Note
Progress Note Update
RN notified O2 sat 90% requiring midflow 13 L now. Patient asymptomatic, 102/66 HR 60 97.0. confirmed with RT, Oxygen Sat 93-96% at present. Will order labs now
hgb 6.8/215. Type and screen done, consent in chart. Will transfuse 1 unit, Repeat H&H
--- NOTE | 2024-11-23 08:30 | W.PN.PUL3 ---
Today's Communication / Plan
-
Now on HFNC, encouraged IS, deep breathing--not endorsing worsening subjective symptoms
CXR this AM worsening in appearance but could be at plateau of disease, steroids continued for 500mg IV x 3 course
Repeat CXR tomorrow to follow, we discussed diagnostic bronchoscopy but can see how he does with further IV doses
Further blood given, proBNP negative
Sputum culture pending, abx continued
Renal following, creat trending down
Observation
Assessment
-
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 Notes sinus
symptoms as well. Saw OP care team and obtained CXR showing PNA. Sent to ER. notes patient started having hemoptysis as well at home [employer]. On arrival, noted to be 94% and requiring 2 L. COVID test was negative, flu test was negative. He had
a white count of 19,000, hemoglobin was 8.1 platelet count 363. BUN/creatinine were notable for being 42 and 3.5 respectively. D-dimer was elevated. Patient had a bilateral lower extremity Doppler studies that were negative for DVT. CT chest wo
performed due to CKD, extensive PNA noted. Hb notably dropped from 8.1 to 6.5. We are consulted for evaluation.
Acute hypoxic respiratory failure
Acute diffuse alveolar hemorrhage (DAH)
Hemoptysis, cough/productive
SOB
Abnormal CT scan
Suspect acute autoimmune flare
NESTOR on CKD
Acute blood loss anemia 2/2 DAH
Conditions present [employer]
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
s/p renal biopsy 2021
Microscopic hematuria
ANCA anti-ND-3 antibody positive
Positive EARNEST (antinuclear antibody)
Seasonal allergies
Overweight
GERD
Covid 2020
Plan
Hypoxemia noted on arrival, was placed on 6L, sats 91-92%--now on HFNC
Encouraged IS, deep breathing/sitting up
Home O2 evaluation will be needed when recovering
Not known to be on home O2, no prior known history of lung disease
Suspect patient has acute DAH but appearance of CT, anemia and hemoptysis on history
We discussed bronchoscopy to evaluate for this, but based on his presentation thus far it is highest likelihood
Will start IV steroids pulse dose, reviewed with renal--continue 500mg x 3 days
Will decrease dose to 80mg post
Repeat CXR this AM showing worsening R sided disease, we will follow clinically as he does not feel clinically worse
Can follow along CXR tomorrow with consideration for diagnostic procedure if not improving
Other imaging reviewed--clear lung bases on CT AP in 2023
Renal disease known to renal team
Had not been on immunosuppressives since diagnosis, s/p biopsy in 2021
NESTOR on CKD noted as well
Renal following for further recs
Can consider plasmapheresis if not responding to steroids
Anemia noted, no other outward signs of bleeding
Quantify hemoptysis
Sputum culture sent
Check proBNP as well for completeness
No prior ECHO for review, no history of cardiac disease
Monitor on telemetry
Smoking history is not noted
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
Will need outpatient pulmonary evaluation in our office for PFTs and 6MWT
Reviewed with patient
Discussed events/plan of care with care team
Diagnostic Data
Chest X-Ray: 11/21/24- Bilateral opacities including patchy opacities, most prominent in the right upper lobe, at least in part suggesting pneumonia/pneumonitis.
CT Scan: CHEST 11/21/24- Bilateral parenchymal airspace opacities, slightly greater on the right compared to the left, and these opacities relatively spare the periphery of both lungs. Main differential considerations of pneumonia and/or alveolar
hemorrhage, and findings may represent a combination of these processes. Pulmonary alveolar proteinosis is also a condition that is reported to have relative sparing the periphery of both lungs. No evidence for significant pleural effusion. No
evidence for significant pericardial effusion.
AP 05/10/24- 1 mm nonobstructing calculus in the lower pole of the left kidney. No right nephrolithiasis. No obstructive uropathy. Multilevel lumbar spondylosis with minimal 2 mm grade 1 retrolisthesis of L5 relative to S1. Lung cases are clear.
Duplex 11/21/24- No evidence of deep venous thrombosis bilaterally.
Echo:
PFT's:
Reports and relevant images were personally reviewed.
Total time spent on this encounter __51__ minutes which includes review of history, physical exam, medications, laboratory data, personal review of imaging, extensive review of outpatient records, discussion with care team and respiratory therapy.
Subjective Data
-
Date of Service:
Date of Service: November 23, 2024
Chief Complaint: Pulmonary Follow Up
Subjective:
Feels subjectively better, though sats are lower today requiring HFNC
No further hemoptysis
Was able to sleep well overnight
Objective Data
Data Reviewed
Vital Signs / I&O / Oxygen:
Vital Signs
Temp Pulse Resp BP Pulse Ox
97.9 F 74 18 133/79 91
11/23/24 07:08 11/23/24 07:08 11/23/24 07:08 11/23/24 07:08 11/23/24 08:14
Intake and Output
11/22/24 11/23/24 11/24/24
06:59 06:59 06:59
Intake Total 730 / 730 250 / 250
Output Total 725 / 725 1350 / 1350
Balance -725 / -725 -620 / -620 250 / 250
SaO2 91
Nasal Cannula flow liters per 50
minute
Physical Exam
General: Comfortable and Other (NAD)
HEENT: Normocephalic, Anicteric and Moist Mucous Membranes
Cardiovascular: S1-S2 and Regular Rhythm
Respiratory: Crackles and Non-Labored Respirations
GI: Soft, Non Distended and Non Tender
Neurology: Awake, Alert, Oriented and No Motor Deficits
Skin: Warm, Dry and Good Color
Labs/Micro/Reports
Lab Data
11/22/24 04:08
Microbiology
11/22/24 02:16 Sputum Gram Stain - Preliminary
11/22/24 02:16 Urine Legionella Urinary Antigen - Final
Negative for Legionella pneumophila Serogroup 1 antigen.
A negative result does not rule out the possiblity of
Legionella infection due to other serogroups or species of
Legionella. Clinical correlation is recommended.
11/22/24 02:16 Urine Streptococcus pneumoniae Antigen (M - Final
Negative for Streptococcus pneumoniae antigen.
A negative result does not exclude infection with
Streptococcus pneumoniae. Clinical correlation is
recommended.
11/21/24 18:26 Nasal Swab Influenza Types A & B (SHREE) - Final
Negative for Influenza A & B, NAAT
Negative results must be combined with clinical observations
and patient history.
Nucleic Acid Amplification test (NAAT)performed on the
[employer] platform.
[2024-11-23] MEDS: MUCINEX 600 MG PO ×2 (09:02→20:14)
--- NOTE | 2024-11-23 09:43 | W.PN.NEPH.PH ---
Today's Communication / Plan
-
Follow BMP
No acute hemodialysis indication
For blood products again today given worsening anemia in setting of alveolar hemorrhage
Second day of pulse steroids provided IV
Pulmonary monitoring closely and to make final decision if plasmapheresis would be indicated
Assessment/Plan
-
IMP:
Acute hypoxic respiratory failure with hemoptysis
Acute diffuse alveolar hemorrhage (DAH)
NESTOR with CKD 3-baseline cr 1.1-1.4, suspect acute pulmonary�renal syndrome
Biopsy-proven FSGS 2021
baseline weakly positive PR3
Acute blood loss anemia secondary to alveolar hemorrhage.
Microcytosis
GERD
Plan:
A/w hemoptysis and sob
noted alveolar hemorrhage and NESTOR suspect of pulm renal syndrome
NESTOR-cr no significant change, fortunately non oliguric-monitor UOP
UA with hematuria and U PCR 3.8gm/gm of cr
serologies sent, also send anti GBM and hepatitis panel
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
previously spoke with pulm , will maintain pulse steroids 500mg daily for 3 days and then prednisone 60-80mg daily
possible plan for Kidney biopsy once resp status stabilizes
depending on course consider plasmapheresis
BP stable
antibiotics renally dosed
no emergent need of dialysis
for transfusion for anemia as hemoglobin remains low at 6.8
d/w pt and in detail
Patient at high risk for clinical decline given profound renal failure in setting of suspected pulmonary renal syndrome with hypoxia
-
-
Date of Service: November 23, 2024
CC / HPI / ROS
-
Chief Complaint:
Acute kidney injury
History of Present Illness:
Creatinine unchanged at 3.4 from 11/22/2024
Hemodynamically stable
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
Review of Systems:
Less than mopped assist
Remains on high flow O2
Nonoliguric
No chest pain
Labs
-
Labs:
WBC 13.4 10^3/uL (4.8-10.8) H 11/23/24 02:27
RBC 2.77 10^6/uL (4.70-6.10) L 11/23/24 02:27
Plt Count 302 10^3/uL (130-400) 11/23/24 02:27
Sodium 135 mmol/L (135-145) 11/22/24 04:08
Potassium 4.8 mmol/L (3.5-5.1) 11/22/24 04:08
Chloride 107 mmol/L (98-107) 11/22/24 04:08
Carbon Dioxide 20 mmol/L (22-30) L 11/22/24 04:08
BUN 42 mg/dl (9-20) H 11/22/24 04:08
Creatinine 3.4 mg/dL (0.7-1.3) H 11/22/24 04:08
eGFR 21.25 11/22/24 04:08
Glucose 107 mg/dl (70-99) H 11/22/24 04:08
Calcium 7.9 mg/dl (8.4-10.2) L 11/22/24 04:08
Mur-G-Jeeegdnlytd Pept 243 pg/ml 11/22/24 04:08
Albumin 2.5 g/dl (3.5-5.0) L 11/23/24 02:27
Physical Exam
-
Vital Signs:
Vital Signs
Temp Pulse Resp BP Pulse Ox
97.9 F 74 18 133/79 91
11/23/24 07:55 11/23/24 07:08 11/23/24 07:08 11/23/24 07:08 11/23/24 08:14
Cardiovascular:: Regular rate and rhythm
Respiratory:: Bilateral: Coarse
Lung Excursion:: Normal
Abdomen:: Nontender and Soft
Bowel Sounds:: Normal
Extremity Edema:: None: Bilateral:
Macedo Catheter: No
[2024-11-23] MEDS: SOLU-MEDROL 108 MG IV (11:19)
[2024-11-23] MEDS: LR IV (12:00)
--- NOTE | 2024-11-23 14:13 | PTCARENOTE ---
Pt's assessment as documented. Aox3. NSR on tele monitor. Tolerating HFNC at this time. Pt and at bedside, updated on POC. Able to make needs known, call oconnell within reach.
[2024-11-23 15:04] LABS: Hematocrit 24.5 % (39.0-52.0)
[2024-11-23 15:16] LABS: Blood Urea Nitrogen 52 mg/dl (9-20); Calcium 8.5 mg/dl (8.4-10.2); Carbon Dioxide 19 mmol/L (22-30); Chloride 109 mmol/L (98-107); Estimated Creatinine Clearance 31 ml/min; Glucose 178 mg/dl (70-99); Potassium 4.6 mmol/L (3.5-5.1); Sodium 137 mmol/L (135-145); eGFR 22.02
--- NOTE | 2024-11-23 16:07 | CM ---
Chart reviewed and patint is currently on high flow oxygen.
Plan; Patient is currently on High flow oxygen needs follow up.
--- NOTE | 2024-11-23 16:14 | W.PN.HOSP.TC ---
Today's Communication/Plan
-
Aggressive oxygen supplementation
IV steroids
Empiric antibiotics pending final cultures.
Monitor renal function
Assessment / Plan
Assessment / Plan
Impression:
Acute hypoxic respiratory failure
Acute diffuse alveolar hemorrhage.
� Ongoing hemoptysis.
NESTOR on CKD, nephritic syndrome.
Acute blood loss anemia.
Conditions prior to admission:
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
� C-ANCA/Anti-TN-3 positive, EARNEST positive reported at the lower titers.
GERD.
History of COVID.
Overweight with BMI of 29
Plan:
Acute hypoxic respiratory failure with hemoptysis, NESTOR, nephritic syndrome suggestive of acute pulmonary�renal syndrome
Going hemoptysis and CT findings consistent with diffuse alveolar hemorrhage
Remains with high oxygen requirements, currently on high flow nasal cannula
Follow-up chest x-ray 11/23 with worsening bilateral infiltrates
Continue IV corticosteroids initiated on 11/22
Quantify hemoptysis
Continue empiric antibiotics pending cultures
Will review serology pending
Echocardiogram with preserved biventricular function and no evidence of valvular abnormalities
NESTOR.
CKD stage II�3 with baseline creatinine 1.5.
Biopsy-proven FSGS
Current findings consistent with nephritic syndrome
Serology pending.
Check urine protein level.
May require repeat renal biopsy
Acute blood loss anemia secondary to alveolar hemorrhage.
Microcytosis
Check hemolytic panel for completeness
Check iron studies
Transfuse to keep hemoglobin above 8.
Anticipated Discharge: > 48 hours
Subjective/Interval History
-
Date of Service: November 23, 2024
Objective Data
-
Labs:
Laboratory Results
11/23/24
14:49
Hgb 8.0 L
Hct 24.5 L
Sodium 137
Potassium 4.6
Chloride 109 H
Carbon Dioxide 19 L
BUN 52 H
Creatinine 3.3 H
Glucose 178 H
Calcium 8.5
Vital Signs:
Vital Signs
Temp Pulse Resp BP Pulse Ox
97.9 F 69 29 136/91 93
11/23/24 07:55 11/23/24 12:31 11/23/24 12:31 11/23/24 12:31 11/23/24 13:50
I&O
11/22/24 11/23/24 11/24/24
06:59 06:59 06:59
Intake Total 730 / 730 250 / 250
Output Total 725 / 725 1350 / 1350 200 / 200
Balance -725 / -725 -620 / -620 50 / 50
Physical Exam
-
General: Well Developed and No Apparent Distress
HEENT: Normocephalic, Atraumatic and Moist Mucous Membranes
Respiratory: Clear to Auscultation
Cardiac: Regular Rhythm and S1/S2; Negative Murmur, Rub or Gallop
GI: Soft, Nontender, Nondistended and Normal Bowel Sounds; Negative Organomegaly
Rectal: Deferred by Provider
Musculoskeletal: No Clubbing, No Cyanosis and No Edema
Skin: Negative Rash
Neuro: Nonfocal/Grossly Intact
[2024-11-23] MEDS: ZITHROMAX INFUSION 250 IV (18:10)
[2024-11-23] MEDS: STERILE WATER FOR INJECTION 10 ML IV (18:11)
[2024-11-23] MEDS: ROCEPHIN 1000 MG IV (18:11)
--- NOTE | 2024-11-23 21:40 | PTCARENOTE ---
Assumed care of Pt from previous RN. Pt AAOx3. at bedside. NSR on monitor, HR 66. Pt on hiflow 40/90, satting 95%. Pt assisted with HS hygiene, face washed/ bed bath, linen change provided. Pt stood and pivoted to bedside chair to get washed
up. Tolerated ambulation, sats remained above 90%. Pt admits to slight dyspnea with the ambulation. Pt returned to bed and dyspnea subsided. No bloody sputum assessed thus far during this RNs shift. Assessment as documented. Call light in reach.
[2024-11-24] VITALS (18 sets, daily range): BP systolic 109–152; BP diastolic 63–95
[2024-11-24 05:24] LABS: Hematocrit 23.3 % (39.0-52.0); Hemoglobin 7.6 g/dL (13.0-18.0); Mean Corp Hgb Conc. 32.6 g/dL (33.0-37.0); Mean Corpuscular Hgb 25.7 pg (27.0-31.0); Mean Corpuscular Volume 78.7 fL (80.0-94.0); Mean Platelet Volume 10.5 fL (7.4-10.4); Platelet Count 357 10^3/uL (130-400); Red Blood Cell Count 2.96 10^6/uL (4.70-6.10); Red Cell Dist. Width 14.9 % (11.5-14.5); White Blood Cell Count 26.7 10^3/uL (4.8-10.8)
[2024-11-24 05:46] LABS: Haptoglobin 335 mg/dL (30-200)
[2024-11-24 05:58] LABS: Complement C3 100 mg/dl (88-165)
--- NOTE | 2024-11-24 06:00 | PTCARENOTE ---
hgb 7.6. BUS INFO CONSULTANT made aware. VSS.
[2024-11-24 06:17] LABS: ANA, IgG Reflex to HEp-2 None Detected (None Detected)
[2024-11-24 06:47] LABS: Blood Urea Nitrogen 60 mg/dl (9-20); Calcium 8.4 mg/dl (8.4-10.2); Carbon Dioxide 18 mmol/L (22-30); Chloride 109 mmol/L (98-107); Estimated Creatinine Clearance 30 ml/min; Glucose 137 mg/dl (70-99); Potassium 4.8 mmol/L (3.5-5.1); Sodium 138 mmol/L (135-145); eGFR 21.25
[2024-11-24 07:24] LABS: % Basophils 0.1 % (0-2); % Immature Granulocytes 1.8 % (0-0.5); % Lymphocytes 1.9 % (20.5-51.1); % Monocytes 2.4 % (1.7-9.3); % Neutrophils 93.8 % (42.2-75.2); Absolute Immature Granulocytes 0.5 10^3/uL (0-0.05); Absolute Lymphocytes 0.5 10^3/uL (1.2-3.4); Absolute Monocytes 0.6 10^3/uL (0.1-0.6); Nucleated Red Blood Cells % 0 % (-)
[2024-11-24 08:44] LABS: Protein/creatinine Ratio 2.8; Urine Protein 329 mg/dl; Urine Protein 329 mg/dl (0-12)
--- NOTE | 2024-11-24 09:03 | W.PN.PUL3 ---
Today's Communication / Plan
-
Doing great with exercises, feels no SOB but has occasional cough, no further hemoptysis
HFNC 90% but can likely start weaning down as his sats have been 96-98%
Continue steroids, decrease dose by tomorrow
Hb has been stable, no need for further transfusions
Continue aggressive PT/proning/supportive care
Repeat CXR in AM
Assessment
-
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 Notes sinus
symptoms as well. Saw OP care team and obtained CXR showing PNA. Sent to ER. notes patient started having hemoptysis as well at home [employer]. On arrival, noted to be 94% and requiring 2 L. COVID test was negative, flu test was negative. He had
a white count of 19,000, hemoglobin was 8.1 platelet count 363. BUN/creatinine were notable for being 42 and 3.5 respectively. D-dimer was elevated. Patient had a bilateral lower extremity Doppler studies that were negative for DVT. CT chest wo
performed due to CKD, extensive PNA noted. Hb notably dropped from 8.1 to 6.5. We are consulted for evaluation.
Acute hypoxic respiratory failure
Acute diffuse alveolar hemorrhage (DAH)
Hemoptysis, cough/productive
SOB
Abnormal CT scan
Suspect acute autoimmune flare
NESTOR on CKD
Acute blood loss anemia 2/2 DAH
Conditions present [employer]
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
s/p renal biopsy 2021
Microscopic hematuria
ANCA anti-AR-3 antibody positive
Positive EARNEST (antinuclear antibody)
Seasonal allergies
Overweight
GERD
Covid 2020
Plan
Hypoxemia noted on arrival, was placed on 6L, sats 91-92%--now on HFNC 90%/40LPM
This could be weaned down, will review with RT
Encouraged IS, deep breathing/sitting up--doing well
Home O2 evaluation will be needed when recovering
Not known to be on home O2, no prior known history of lung disease
Suspect patient has acute DAH but appearance of CT, anemia and hemoptysis on history
We discussed bronchoscopy to evaluate for this, but based on his presentation thus far it is highest likelihood
Will start IV steroids pulse dose, reviewed with renal--continue 500mg x 3 days
Will decrease dose to 80mg tomorrow
Repeat CXR this AM showing worsening R sided disease, we will follow clinically as he does not feel clinically worse
Can follow along CXR tomorrow 11/25/24
Other imaging reviewed--clear lung bases on CT AP in 2023
Renal disease known to renal team
Had not been on immunosuppressives since diagnosis, s/p biopsy in 2021
NESTOR on CKD noted as well
Renal following for further recs
Can consider plasmapheresis if not responding to steroids
Anemia noted, no other outward signs of bleeding
Quantify hemoptysis
Sputum culture sent
Check proBNP as well for completeness
No prior ECHO for review, no history of cardiac disease
Monitor on telemetry
Smoking history is not noted
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
Will need outpatient pulmonary evaluation in our office for PFTs and 6MWT
Reviewed with patient
Discussed events/plan of care with care team
Diagnostic Data
Chest X-Ray: 11/21/24- Bilateral opacities including patchy opacities, most prominent in the right upper lobe, at least in part suggesting pneumonia/pneumonitis.
CT Scan: CHEST 11/21/24- Bilateral parenchymal airspace opacities, slightly greater on the right compared to the left, and these opacities relatively spare the periphery of both lungs. Main differential considerations of pneumonia and/or alveolar
hemorrhage, and findings may represent a combination of these processes. Pulmonary alveolar proteinosis is also a condition that is reported to have relative sparing the periphery of both lungs. No evidence for significant pleural effusion. No
evidence for significant pericardial effusion.
AP 05/10/24- 1 mm nonobstructing calculus in the lower pole of the left kidney. No right nephrolithiasis. No obstructive uropathy. Multilevel lumbar spondylosis with minimal 2 mm grade 1 retrolisthesis of L5 relative to S1. Lung cases are clear.
Duplex 11/21/24- No evidence of deep venous thrombosis bilaterally.
Echo:
PFT's:
Reports and relevant images were personally reviewed.
Total time spent on this encounter __51__ minutes which includes review of history, physical exam, medications, laboratory data, personal review of imaging, extensive review of outpatient records, discussion with care team and respiratory therapy.
Subjective Data
-
Date of Service:
Date of Service: November 24, 2024
Chief Complaint: Pulmonary Follow Up
Subjective:
Doing well today, feels great
HFNC settings are 90% and 40LPM but he has been satting >95%
Able to do his exercises, feels no limitations, occasional cough but no hemoptysis
Objective Data
Data Reviewed
Vital Signs / I&O / Oxygen:
Vital Signs
Temp Pulse Resp BP Pulse Ox
98.0 F 72 16 117/70 92
11/24/24 07:00 11/24/24 08:00 11/24/24 08:00 11/24/24 06:20 11/24/24 08:01
Intake and Output
11/23/24 11/24/24 11/25/24
06:59 06:59 06:59
Intake Total 730 / 730 730 / 730
Output Total 1350 / 1350 200 / 200 350 / 350
Balance -620 / -620 530 / 530 -350 / -350
SaO2 92
Nasal Cannula flow liters per 40
minute
Physical Exam
General: Comfortable and Other (NAD)
HEENT: Normocephalic, Anicteric and Moist Mucous Membranes
Cardiovascular: S1-S2 and Regular Rhythm
Respiratory: Crackles and Non-Labored Respirations
GI: Soft, Non Distended and Non Tender
Neurology: Awake, Alert, Oriented and No Motor Deficits
Skin: Warm, Dry and Good Color
Labs/Micro/Reports
Lab Data
11/24/24 05:06
11/24/24 05:06
Microbiology
11/22/24 02:16 Sputum Respiratory Culture - Preliminary
Usual Respiratory Sheryl
11/22/24 02:16 Sputum Gram Stain - Preliminary
11/21/24 19:31 Urine Urine Culture - Final
NO GROWTH
11/22/24 02:16 Urine Legionella Urinary Antigen - Final
Negative for Legionella pneumophila Serogroup 1 antigen.
A negative result does not rule out the possiblity of
Legionella infection due to other serogroups or species of
Legionella. Clinical correlation is recommended.
11/22/24 02:16 Urine Streptococcus pneumoniae Antigen (M - Final
Negative for Streptococcus pneumoniae antigen.
A negative result does not exclude infection with
Streptococcus pneumoniae. Clinical correlation is
recommended.
11/21/24 18:26 Nasal Swab Influenza Types A & B (SHREE) - Final
Negative for Influenza A & B, NAAT
Negative results must be combined with clinical observations
and patient history.
Nucleic Acid Amplification test (NAAT)performed on the
[employer] platform.
[2024-11-24] MEDS: MUCINEX 600 MG PO ×2 (09:36→20:15)
[2024-11-24 10:11] LABS: Rheumatoid Agglutinin Positive (<10 IU)
[2024-11-24 10:12] LABS: Rheumatoid Agg. Semi-quant 2048 IU
--- NOTE | 2024-11-24 10:43 | W.PN.NEPH.PH ---
Today's Communication / Plan
-
Day 3 of 3 of pulse IV methylprednisolone
Initiate 80 mg p.o. prednisone tomorrow
No acute dialysis required
Blood products to be given today
Assessment/Plan
-
IMP:
Acute hypoxic respiratory failure with hemoptysis
Acute diffuse alveolar hemorrhage (DAH)
NESTOR with CKD 3-baseline cr 1.1-1.4, suspect acute pulmonary�renal syndrome
Biopsy-proven FSGS 2021
baseline weakly positive PR3
Acute blood loss anemia secondary to alveolar hemorrhage.
Microcytosis
GERD
Plan:
A/w hemoptysis and sob
creatinine at 3.4
noted alveolar hemorrhage and NESTOR suspect of pulm renal syndrome
NESTOR-cr no significant change, fortunately non oliguric-monitor UOP
UA with hematuria and U PCR 3.8gm/gm of cr
serologies sent, also send anti GBM and hepatitis panel
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
previously spoke with pulm , will maintain pulse steroids 3/3 500mg IV daily for 3 days and then prednisone 80mg daily to be initiated tomorrow
possible plan for Kidney biopsy once resp status stabilizes
depending on course consider plasmapheresis for active alveolar hemorrhage, discussed with pulmonary
BP stable
antibiotics renally dosed
If metabolic acidosis exacerbates we will add sodium bicarbonate tablet
no emergent need of dialysis
for transfusion again for anemia as hemoglobin remains low at 6.8 went from 8 to 7.6
d/w pt and in detail
Patient at high risk for clinical decline given profound renal failure in setting of suspected pulmonary renal syndrome with hypoxia
-
-
Date of Service: November 24, 2024
CC / HPI / ROS
-
Chief Complaint:
Acute kidney injury
History of Present Illness:
Creatinine unchanged at 3.4 from 11/22/2024
Hemodynamically stable
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
Hemoglobin dropping and receiving blood products
Review of Systems:
Less hemoptysis
Remains on high flow O2
Nonoliguric
No chest pain
Labs
-
Labs:
WBC 26.7 10^3/uL (4.8-10.8) H 11/24/24 05:06
RBC 2.96 10^6/uL (4.70-6.10) L 11/24/24 05:06
Hgb 7.6 g/dL (13.0-18.0) L 11/24/24 05:06
Hct 23.3 % (39.0-52.0) L 11/24/24 05:06
Plt Count 357 10^3/uL (130-400) 11/24/24 05:06
Sodium 138 mmol/L (135-145) 11/24/24 05:06
Potassium 4.8 mmol/L (3.5-5.1) 11/24/24 05:06
Chloride 109 mmol/L (98-107) H 11/24/24 05:06
Carbon Dioxide 18 mmol/L (22-30) L 11/24/24 05:06
BUN 60 mg/dl (9-20) H 11/24/24 05:06
Creatinine 3.4 mg/dL (0.7-1.3) H 11/24/24 05:06
eGFR 21.25 11/24/24 05:06
Glucose 137 mg/dl (70-99) H 11/24/24 05:06
Calcium 8.4 mg/dl (8.4-10.2) 11/24/24 05:06
Nqa-W-Lvmgyhiyxtc Pept 243 pg/ml 11/22/24 04:08
Albumin 2.5 g/dl (3.5-5.0) L 11/23/24 02:27
Physical Exam
-
Vital Signs:
Vital Signs
Temp Pulse Resp BP Pulse Ox
98.1 F 63 20 122/80 90
11/24/24 10:11 11/24/24 10:11 11/24/24 10:11 11/24/24 10:11 11/24/24 08:08
Cardiovascular:: Regular rate and rhythm
Respiratory:: Bilateral: Coarse
Lung Excursion:: Normal
Abdomen:: Nontender and Soft
Bowel Sounds:: Normal
Extremity Edema:: None: Bilateral:
Macedo Catheter: No
[2024-11-24] MEDS: SOLU-MEDROL 108 MG IV (11:02)
--- NOTE | 2024-11-24 11:05 | PTCARENOTE ---
Assumed care of patient at 0645.
Assessed patient and documented in shift assessment. Patient is pleasant, AAOX4 and cooperative with care. Currently requiring 40L 90% HFNC, SpO2 mid-high 90's, PASTRANA with coarse/crackles. Otherwise benign assessment. Receiving 1 Unit PRBC through L
Wrist #20, Hgb had been 7.6 this AM. BP stable.
--- NOTE | 2024-11-24 15:48 | W.PN.HOSP.TC ---
Today's Communication/Plan
-
Transfuse.
IV steroids.
Wean off O2.
Increase activity
Assessment / Plan
Assessment / Plan
Impression:
Acute hypoxic respiratory failure
Acute diffuse alveolar hemorrhage.
� Ongoing hemoptysis.
NESTOR on CKD, nephritic syndrome.
Acute blood loss anemia.
Conditions prior to admission:
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
� C-ANCA/Anti-CT-3 positive, EARNEST positive reported at the lower titers.
GERD.
History of COVID.
Overweight with BMI of 29
Plan:
Acute hypoxic respiratory failure with hemoptysis, NESTOR, nephritic syndrome suggestive of acute pulmonary�renal syndrome
Going hemoptysis and CT findings consistent with diffuse alveolar hemorrhage
Remains with high oxygen requirements, currently on high flow nasal cannula
Follow-up chest x-ray 11/23 with worsening bilateral infiltrates
Overall improving with resolution of hemoptysis
Hemoglobin plateaued with transfusions
Continue IV corticosteroids initiated on 12/23 with plan to transition to prednisone taper
Attempt to wean off O2 as tolerates
Quantify hemoptysis
Continue empiric antibiotics pending cultures
Will review serology pending
Echocardiogram with preserved biventricular function and no evidence of valvular abnormalities
NESTOR.
CKD stage II�3 with baseline creatinine 1.5.
Biopsy-proven FSGS
Current findings consistent with nephritic syndrome
Serology pending.
Check urine protein level.
May require repeat renal biopsy
Acute blood loss anemia secondary to alveolar hemorrhage.
Microcytosis
Check hemolytic panel for completeness
Check iron studies
Transfuse to keep hemoglobin above 8.
Anticipated Discharge: > 48 hours
Subjective/Interval History
-
Date of Service: November 24, 2024
Objective Data
-
Labs:
Laboratory Results
03/06/25
05:06
WBC 26.7 H
Hgb 7.6 L
Hct 23.3 L
Plt Count 357
Sodium 138
Potassium 4.8
Chloride 109 H
Carbon Dioxide 18 L
BUN 60 H
Creatinine 3.4 H
Glucose 137 H
Calcium 8.4
Vital Signs:
Vital Signs
Temp Pulse Resp BP Pulse Ox
98 F 63 17 133/83 98
11/24/24 12:30 11/24/24 14:00 11/24/24 14:00 11/24/24 14:00 11/24/24 14:00
I&O
11/23/24 11/24/24 11/25/24
06:59 06:59 06:59
Intake Total 730 / 730 730 / 730 250 / 250
Output Total 1350 / 1350 200 / 200 350 / 350
Balance -620 / -620 530 / 530 -100 / -100
Physical Exam
-
General: Well Developed and No Apparent Distress
HEENT: Normocephalic, Atraumatic and Moist Mucous Membranes
Respiratory: Clear to Auscultation
Cardiac: Regular Rhythm and S1/S2; Negative Murmur, Rub or Gallop
GI: Soft, Nontender, Nondistended and Normal Bowel Sounds; Negative Organomegaly
Rectal: Deferred by Provider
Musculoskeletal: No Clubbing, No Cyanosis and No Edema
Skin: Negative Rash
Neuro: Nonfocal/Grossly Intact
--- NOTE | 2024-11-24 16:06 | CM ---
Patient with Dx Acute hypoxic respiratory failure, DAH/Diffuse Alveolar Hemorrhage. High flow O2. Receiving 1 Unit PRBC today. Receiving IV Abx, IV Steroids switched to Prednisone today. PT on hold.
CM continuing to follow.
Plan follow O2 needs, and follow up after seen by PT.
Plan probable home.
[2024-11-24] MEDS: ZITHROMAX INFUSION 250 IV (17:21)
[2024-11-24] MEDS: STERILE WATER FOR INJECTION 10 ML IV (17:21)
[2024-11-24] MEDS: ROCEPHIN 1000 MG IV (17:21)
[2024-11-24 18:35] LABS: ds-DNA Ab, IgG Reflex To Titer 1 IU (0-24)
[2024-11-24 19:39] LABS: Hepatitis B Surface Antigen Negative (Negative)
[2024-11-24 19:55] LABS: Hepatitis B Core Ab, Total Negative (Negative); Hepatitis B Surface Antibody Negative; Hepatitis C Antibody Negative (Negative)
--- NOTE | 2024-11-24 22:40 | PTCARENOTE ---
Pt received from gui RN. pt AA0x3. pleasant. family at bedside. pt on hiflow with 40/60. sats remain above 95%. pt denies current SOB. Assessment as documented. Call light in reach.
[2024-11-25] VITALS (15 sets, daily range): BP systolic 114–151; BP diastolic 72–95; PULSE 64; O2SAT 96; BMI 30.4
[2024-11-25 04:39] LABS: % Basophils 0.1 % (0-2); % Immature Granulocytes 0.9 % (0-0.5); % Lymphocytes 3.7 % (20.5-51.1); % Neutrophils 92.3 % (42.2-75.2); Absolute Immature Granulocytes 0.2 10^3/uL (0-0.05); Absolute Lymphocytes 0.7 10^3/uL (1.2-3.4); Absolute Monocytes 0.6 10^3/uL (0.1-0.6); Absolute Neutrophils 17.5 10^3/uL (1.4-6.5); Hematocrit 26.7 % (39.0-52.0); Hemoglobin 8.5 g/dL (13.0-18.0); Mean Corp Hgb Conc. 31.8 g/dL (33.0-37.0); Mean Corpuscular Hgb 25.4 pg (27.0-31.0); Mean Corpuscular Volume 79.9 fL (80.0-94.0); Mean Platelet Volume 10.5 fL (7.4-10.4); Nucleated Red Blood Cells % 0 % (-); Platelet Count 406 10^3/uL (130-400); Red Blood Cell Count 3.34 10^6/uL (4.70-6.10)
[2024-11-25 04:56] LABS: Blood Urea Nitrogen 67 mg/dl (9-20); Calcium 8.4 mg/dl (8.4-10.2); Carbon Dioxide 20 mmol/L (22-30); Chloride 110 mmol/L (98-107); Estimated Creatinine Clearance 33 ml/min; Glucose 124 mg/dl (70-99); Potassium 4.7 mmol/L (3.5-5.1); Sodium 139 mmol/L (135-145); eGFR 21.25
[2024-11-25] MEDS: DELTASONE 80 MG PO (09:01)
[2024-11-25] MEDS: MUCINEX 600 MG PO ×2 (09:01→20:27)
--- NOTE | 2024-11-25 09:31 | W.PN.PUL3 ---
Today's Communication / Plan
-
CXR this AM improved significantly
HFNC transitioned to midflow, continue to wean O2 as able--eventual home O2 assessment
Now on prednisone 80mg with slow taper
Continue daily exercise, OOB/IS, he is very motivated and doing a great job
We will arrange outpatient FU as he continues to improve
Assessment
-
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 Notes sinus
symptoms as well. Saw OP care team and obtained CXR showing PNA. Sent to ER. 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 On arrival, noted to be 94% and requiring 2 L. COVID test was negative, flu test was negative. He had
a white count of 19,000, hemoglobin was 8.1 platelet count 363. BUN/creatinine were notable for being 42 and 3.5 respectively. D-dimer was elevated. Patient had a bilateral lower extremity Doppler studies that were negative for DVT. CT chest wo
performed due to CKD, extensive PNA noted. Hb notably dropped from 8.1 to 6.5. We are consulted for evaluation.
Acute hypoxic respiratory failure
Acute diffuse alveolar hemorrhage (DAH)
Hemoptysis, cough/productive
SOB
Abnormal CT scan
Suspect acute autoimmune flare
NESTOR on CKD
Acute blood loss anemia 2/2 DAH
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
s/p renal biopsy 2021
Microscopic hematuria
ANCA anti-NC-3 antibody positive
Positive EARNEST (antinuclear antibody)
Seasonal allergies
Overweight
GERD
Covid 2020
Plan
Hypoxemia noted on arrival, HFNC now transitioned to midflow
This could be weaned down, will review with RT
Encouraged IS, deep breathing/sitting up--doing well
Home O2 evaluation will be needed when recovering
Not known to be on home O2, no prior known history of lung disease
Suspect patient has acute DAH but appearance of CT, anemia and hemoptysis on history
We discussed bronchoscopy to evaluate for this, but based on his presentation thus far it is highest likelihood
Will start IV steroids pulse dose, reviewed with renal--continue 500mg x 3 days--completed 11/24/24
Continue prednisone 80mg daily, wean as tolerated
Repeat CXR this AM showing worsening R sided disease, we will follow clinically as he does not feel clinically worse
Can follow along CXR tomorrow 11/25/24--reviewed/improving
Other imaging reviewed--clear lung bases on CT AP in 2023
Renal disease known to renal team
Had not been on immunosuppressives since diagnosis, s/p biopsy in 2021
NESTOR on CKD noted as well
Renal following for further recs
Can consider plasmapheresis if not responding to steroids
Anemia noted, no other outward signs of bleeding
Quantify hemoptysis
Sputum culture sent
Check proBNP as well for completeness
No prior ECHO for review, no history of cardiac disease
Monitor on telemetry
Smoking history is not noted
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
Will need outpatient pulmonary evaluation in our office for PFTs and 6MWT
Reviewed with patient
Discussed events/plan of care with care team
Diagnostic Data
Chest X-Ray: 11/21/24- Bilateral opacities including patchy opacities, most prominent in the right upper lobe, at least in part suggesting pneumonia/pneumonitis.
CT Scan: CHEST 11/21/24- Bilateral parenchymal airspace opacities, slightly greater on the right compared to the left, and these opacities relatively spare the periphery of both lungs. Main differential considerations of pneumonia and/or alveolar
hemorrhage, and findings may represent a combination of these processes. Pulmonary alveolar proteinosis is also a condition that is reported to have relative sparing the periphery of both lungs. No evidence for significant pleural effusion. No
evidence for significant pericardial effusion.
AP 8/20/24- 1 mm nonobstructing calculus in the lower pole of the left kidney. No right nephrolithiasis. No obstructive uropathy. Multilevel lumbar spondylosis with minimal 2 mm grade 1 retrolisthesis of L5 relative to S1. Lung cases are clear.
Duplex 11/21/24- No evidence of deep venous thrombosis bilaterally.
Echo:
PFT's:
Reports and relevant images were personally reviewed.
Total time spent on this encounter __51__ minutes which includes review of history, physical exam, medications, laboratory data, personal review of imaging, extensive review of outpatient records, discussion with care team and respiratory therapy.
Subjective Data
-
Date of Service:
Date of Service: November 25, 2024
Chief Complaint: Pulmonary Follow Up
Subjective:
Doing well, now off HFNC on midflow
Feels great
Objective Data
Data Reviewed
Vital Signs / I&O / Oxygen:
Vital Signs
Temp Pulse Resp BP Pulse Ox
98.0 F 51 15 128/83 97
11/25/24 07:37 11/25/24 06:00 11/25/24 06:00 11/25/24 06:00 11/25/24 09:18
Intake and Output
11/24/24 11/25/24 11/26/24
06:59 06:59 06:59
Intake Total 730 / 730 1050 / 1050
Output Total 200 / 200 1775 / 1775
Balance 530 / 530 -725 / -725
SaO2 97
Nasal Cannula flow liters per 15
minute
Physical Exam
General: Comfortable and Other (NAD)
HEENT: Normocephalic, Anicteric and Moist Mucous Membranes
Cardiovascular: S1-S2 and Regular Rhythm
Respiratory: Crackles (minimal, improving) and Non-Labored Respirations
GI: Soft, Non Distended and Non Tender
Neurology: Awake, Alert, Oriented and No Motor Deficits
Skin: Warm, Dry and Good Color
Labs/Micro/Reports
Lab Data
11/25/24 04:01
11/25/24 04:01
Microbiology
11/22/24 02:16 Sputum Respiratory Culture - Final
Usual Respiratory Sheryl
11/22/24 02:16 Sputum Gram Stain - Final
11/21/24 19:31 Urine Urine Culture - Final
NO GROWTH
11/22/24 02:16 Urine Legionella Urinary Antigen - Final
Negative for Legionella pneumophila Serogroup 1 antigen.
A negative result does not rule out the possiblity of
Legionella infection due to other serogroups or species of
Legionella. Clinical correlation is recommended.
11/22/24 02:16 Urine Streptococcus pneumoniae Antigen (M - Final
Negative for Streptococcus pneumoniae antigen.
A negative result does not exclude infection with
Streptococcus pneumoniae. Clinical correlation is
recommended.
--- NOTE | 2024-11-25 09:49 | PTCARENOTE ---
Assumed care of pt from shift mechanic RN. AAOx3. NSR/SB on tele, HRs 50s-60s. Weaned to 15L midflow by RT, SpO2 97%. Ambulated with pt in hallway. SpO2 between 92-94% while ambulating on 15L midflow. Pt denied SOB, PASTRANA during ambulation. Pt now
resting in bed with family at bedside. Assessment documented.
[2024-11-25 12:58] LABS: Albumin 2.29 g/dL (3.75-5.01); Alpha 1 Globulin 0.42 g/dL (0.19-0.46); Alpha 2 Globulin 0.85 g/dL (0.48-1.05); SPEP IFE Reflex Not Done; Total Protein-Electrophoresis 4.9 g/dL (6.3-8.2)
[2024-11-25 13:07] LABS: Myeloperoxidase Antibody 0 AU/mL (0-19); Serine Protease-3, IgG 119 AU/mL (0-19)
[2024-11-25 13:08] LABS: Glomerular Base Membrane Ab 0 AU/mL (0-19)
--- NOTE | 2024-11-25 13:21 | W.PN.HOSP.TC ---
Today's Communication/Plan
-
Transition to oral steroids.
Attempt to wean off O2 as tolerates per
Increase activity
Monitor hemoglobin
Assessment / Plan
Assessment / Plan
Impression:
Acute hypoxic respiratory failure
Acute diffuse alveolar hemorrhage.
Renal pulmonary syndrome
NESTOR on CKD, nephritic syndrome.
Acute blood loss anemia.
Conditions prior to admission:
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
� C-ANCA/Anti-NH-3 positive, EARNEST positive reported at the lower titers.
GERD.
History of COVID.
Overweight with BMI of 29
Plan:
Acute hypoxic respiratory failure with hemoptysis, NESTOR, nephritic syndrome suggestive of acute pulmonary�renal syndrome
Serology with positive serine proteinase 3/ c-ANCA antibodies at 119
Presented with hemoptysis and NESTOR
Diffuse alveolar hemorrhage
Drastic response to corticosteroid therapy.
Decreased oxygen requirements from high flow 50 L to mid flow 15 L today
Acute blood loss anemia secondary to alveolar hemorrhage
Hemoglobin plateaued with transfusions and corticosteroid treatment
Transition of IV Solu-Medrol to prednisone 80 mg a day
Attempt to wean off O2 as tolerates
Increase activity
Continue empiric antibiotics pending cultures to complete 5 to 7-day course
Echocardiogram with preserved biventricular function and no evidence of valvular abnormalities
NESTOR.
CKD stage II�3 with baseline creatinine 1.5.
Biopsy-proven FSGS in the past
Current findings consistent with nephritic syndrome
Serology with positive serine proteinase 3/ c-ANCA antibodies at 119
May require repeat renal biopsy
Anticipated Discharge: 24 - 48 hours
Subjective/Interval History
-
Date of Service: November 25, 2024
Objective Data
-
Labs:
Laboratory Results
11/25/24
04:01
WBC 19.0 H
Hgb 8.5 L
Hct 26.7 L
Plt Count 406 H
Sodium 139
Potassium 4.7
Chloride 110 H
Carbon Dioxide 20 L
BUN 67 H
Creatinine 3.4 H
Glucose 124 H
Calcium 8.4
Vital Signs:
Vital Signs
Temp Pulse Resp BP Pulse Ox
98.0 F 53 15 151/89 96
11/25/24 11:52 11/25/24 12:00 11/25/24 08:00 11/25/24 12:00 11/25/24 12:00
I&O
11/24/24 11/25/24 11/26/24
06:59 06:59 06:59
Intake Total 730 / 730 1050 / 1050
Output Total 200 / 200 1775 / 1775
Balance 530 / 530 -725 / -725
Physical Exam
-
General: Well Developed and No Apparent Distress
HEENT: Normocephalic, Atraumatic and Moist Mucous Membranes
Respiratory: Clear to Auscultation
Cardiac: Regular Rhythm and S1/S2; Negative Murmur, Rub or Gallop
GI: Soft, Nontender, Nondistended and Normal Bowel Sounds; Negative Organomegaly
Rectal: Deferred by Provider
Musculoskeletal: No Clubbing, No Cyanosis and No Edema
Skin: Negative Rash
Neuro: Nonfocal/Grossly Intact
--- NOTE | 2024-11-25 15:52 | W.PN.NEPH.PH ---
Addendum entered and electronically signed by Valerie Nicholas MD 11/25/24 18:27:
spoke with Dr Ruiz on phone
recommended to get quantiferon for TB
Likely plan K biopsy on Thursday
they will arrange f/u and start process of RTX initiation
Original Note:
Today's Communication / Plan
-
cont steroids, wean O2
Assessment/Plan
-
IMP:
Acute hypoxic respiratory failure with hemoptysis
Acute diffuse alveolar hemorrhage (DAH)
NESTOR with CKD 3-baseline cr 1.1-1.4, suspect acute pulmonary�renal syndrome
Biopsy-proven FSGS 2021
baseline weakly positive PR3
Acute blood loss anemia secondary to alveolar hemorrhage.
Microcytosis
GERD
Plan:
A/w hemoptysis and sob
noted alveolar hemorrhage and NESTOR suspect of pulm renal syndrome
NESTOR-cr no significant change 3.4, fortunately non oliguric-monitor UOP
UA with hematuria and U PCR 3.8gm/gm of cr
PR3 +ve, titer up. neg anti GBM and hepatitis panel
likely plan K biopsy on Thursday depending on what rheum wants, awaiting call back
Alveolar hemorrhage responded well to steroids and wean O2 as able
cont prednisone 80mg daily , completed pulse steroids
BP stable
antibiotics renally dosed
If metabolic acidosis exacerbates we will add sodium bicarbonate tablet
monitor azotemia from steroids
no emergent need of dialysis
hb better , prn transfusion
d/w pt and in detail
Patient at high risk for clinical decline given profound renal failure in setting of suspected pulmonary renal syndrome with hypoxia
-
-
Date of Service: November 25, 2024
CC / HPI / ROS
-
Chief Complaint:
Acute kidney injury
History of Present Illness:
Creatinine unchanged at 3.4 from 11/22/2024
Hemodynamically stable
Now off IV methylprednisolone, on prednisone
Hemoglobin better at 8.5 post trasnfusion
Review of Systems:
no hemoptysis
down to 12lit of O2
Nonoliguric
No chest pain
Labs
-
Labs:
WBC 19.0 10^3/uL (4.8-10.8) H 11/25/24 04:01
RBC 3.34 10^6/uL (4.70-6.10) L 11/25/24 04:01
Hgb 8.5 g/dL (13.0-18.0) L 11/25/24 04:01
Hct 26.7 % (39.0-52.0) L 11/25/24 04:01
Plt Count 406 10^3/uL (130-400) H 11/25/24 04:01
Sodium 139 mmol/L (135-145) 11/25/24 04:01
Potassium 4.7 mmol/L (3.5-5.1) 11/25/24 04:01
Chloride 110 mmol/L (98-107) H 11/25/24 04:01
Carbon Dioxide 20 mmol/L (22-30) L 11/25/24 04:01
BUN 67 mg/dl (9-20) H 11/25/24 04:01
Creatinine 3.4 mg/dL (0.7-1.3) H 11/25/24 04:01
eGFR 21.25 11/25/24 04:01
Glucose 124 mg/dl (70-99) H 11/25/24 04:01
Calcium 8.4 mg/dl (8.4-10.2) 11/25/24 04:01
Onc-U-Qienhqnpfeb Pept 243 pg/ml 11/22/24 04:08
Albumin 2.5 g/dl (3.5-5.0) L 11/23/24 02:27
Physical Exam
-
Vital Signs:
Vital Signs
Temp Pulse Resp BP Pulse Ox
98.0 F 49 15 136/85 92
11/25/24 11:52 11/25/24 14:00 11/25/24 08:00 11/25/24 14:00 11/25/24 14:00
Cardiovascular:: Regular rate and rhythm
Respiratory:: Bilateral: CTA
Lung Excursion:: Normal
Abdomen:: Nontender and Soft
Bowel Sounds:: Normal
Extremity Edema:: None: Bilateral:
[place] Catheter: No
--- NOTE | 2024-11-25 17:11 | CM ---
Patient with Dx Acute hypoxic respiratory failure, DAH/Diffuse Alveolar Hemorrhage. O2 15L midflow. Receiving IV Abx, Prednisone. PT; likely no needs.
Plan follow O2 needs.
Plan home.
[2024-11-25] MEDS: ZITHROMAX INFUSION 250 IV (17:13)
[2024-11-25] MEDS: ROCEPHIN 1000 MG IV (17:14)
[2024-11-25] MEDS: STERILE WATER FOR INJECTION 10 ML IV (17:14)
[2024-11-26] VITALS (13 sets, daily range): BP systolic 106–155; BP diastolic 66–108
--- NOTE | 2024-11-26 00:07 | PTCARENOTE ---
Received patient on RA, sats 92-94%. During sleep, patient desaturates to 87-88%, 4L O2 applied, sats 90-91%. Care ongoing.
[2024-11-26 04:46] LABS: Hematocrit 25.4 % (39.0-52.0); Hemoglobin 8.3 g/dL (13.0-18.0); Mean Corp Hgb Conc. 32.7 g/dL (33.0-37.0); Mean Corpuscular Hgb 26.1 pg (27.0-31.0); Mean Corpuscular Volume 79.9 fL (80.0-94.0); Mean Platelet Volume 10.7 fL (7.4-10.4); Platelet Count 359 10^3/uL (130-400); Red Blood Cell Count 3.18 10^6/uL (4.70-6.10); Red Cell Dist. Width 15.1 % (11.5-14.5)
[2024-11-26 05:08] LABS: Blood Urea Nitrogen 72 mg/dl (9-20); Calcium 8.3 mg/dl (8.4-10.2); Carbon Dioxide 21 mmol/L (22-30); Chloride 112 mmol/L (98-107); Estimated Creatinine Clearance 35 ml/min; Glucose 106 mg/dl (70-99); Potassium 4.5 mmol/L (3.5-5.1); Sodium 139 mmol/L (135-145); eGFR 22.85
[2024-11-26] MEDS: DELTASONE 80 MG PO (08:02)
[2024-11-26] MEDS: MUCINEX 600 MG PO ×2 (08:03→21:07)
--- NOTE | 2024-11-26 12:57 | W.PN.NEPH.PH ---
Today's Communication / Plan
-
see plan
Assessment/Plan
-
IMP:
Acute hypoxic respiratory failure with hemoptysis
Acute diffuse alveolar hemorrhage (DAH)
NESTOR with CKD 3-baseline cr 1.1-1.4, suspect acute pulmonary�renal syndrome
Biopsy-proven FSGS 2021
baseline weakly positive PR3
Acute blood loss anemia secondary to alveolar hemorrhage.
Microcytosis
GERD
Plan:
A/w hemoptysis and sob
noted alveolar hemorrhage and NESTOR suspect of pulm renal syndrome
NESTOR-cr better at 3.2, fortunately non oliguric-monitor UOP
UA with hematuria and U PCR 3.8gm/gm of cr
PR3 +ve, titer up 119. neg anti GBM and hepatitis panel
likely plan K biopsy on Thursday , spoke with Rheum on 11/25-will arrange RTX out pt
quantiferon ordered
Alveolar hemorrhage responded well to steroids and wean O2 as able
cont prednisone 80mg daily , completed pulse steroids
BP stable
antibiotics renally dosed
monitor azotemia from steroids
no emergent need of dialysis
hb stable, prn transfusion
d/w pt and in detail
-
-
Date of Service: November 26, 2024
CC / HPI / ROS
-
Chief Complaint:
Acute kidney injury
History of Present Illness:
Creatinine better at 3.2
Hemodynamically stable
on prednisone
Hemoglobin at 8.3 stable
Review of Systems:
no hemoptysis
down to 2lit of O2
Nonoliguric
No chest pain
Labs
-
Labs:
WBC 17.0 10^3/uL (4.8-10.8) H 11/26/24 04:32
RBC 3.18 10^6/uL (4.70-6.10) L 11/26/24 04:32
Hgb 8.3 g/dL (13.0-18.0) L 11/26/24 04:32
Hct 25.4 % (39.0-52.0) L 11/26/24 04:32
Plt Count 359 10^3/uL (130-400) 11/26/24 04:32
Sodium 139 mmol/L (135-145) 11/26/24 04:32
Potassium 4.5 mmol/L (3.5-5.1) 11/26/24 04:32
Chloride 112 mmol/L (98-107) H 11/26/24 04:32
Carbon Dioxide 21 mmol/L (22-30) L 11/26/24 04:32
BUN 72 mg/dl (9-20) H 11/26/24 04:32
Creatinine 3.2 mg/dL (0.7-1.3) H 11/26/24 04:32
eGFR 22.85 11/26/24 04:32
Glucose 106 mg/dl (70-99) H 11/26/24 04:32
Calcium 8.3 mg/dl (8.4-10.2) L 11/26/24 04:32
Woh-Z-Kqruoetzfrs Pept 243 pg/ml 11/22/24 04:08
Albumin 2.5 g/dl (3.5-5.0) L 11/23/24 02:27
Physical Exam
-
Vital Signs:
Vital Signs
Temp Pulse Resp BP Pulse Ox
97.9 F 49 15 106/66 94
11/26/24 11:22 11/26/24 06:00 11/25/24 08:00 11/26/24 06:00 11/26/24 06:00
Cardiovascular:: Regular rate and rhythm
Respiratory:: Bilateral: CTA
Lung Excursion:: Normal
Abdomen:: Nontender and Soft
Bowel Sounds:: Normal
Extremity Edema:: None: Bilateral:
[place]o Catheter: No
--- NOTE | 2024-11-26 14:02 | W.PN.HOSP.TC ---
Today's Communication/Plan
-
Continue oral steroid
Continue IS and out of bed activity
Follow-up TB testing
Trend CBC, BMP, UOP
Kidney biopsy on Thursday
Assessment / Plan
Assessment / Plan
#Renal pulmonary syndrome
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
-Clinical pattern however is not totally consistent with Chuck's
-Planning for renal biopsy on 11/28 to obtain formal diagnosis
-S/p IV steroid, now on oral regimen of 80 mg prednisone daily
-Anticipate he will need a long steroid taper pending OP Rituxan
-QuantiFERON gold ordered, follow-up TB result
-See below for more detail
#Nephritic syndrome
#NESTOR on CKD 3
-Previous diagnosis of FSGS with renal biopsy in 2021; baseline creatinine 1.5
-Presented with hemoptysis and creatinine up to 3.5; microscopic hematuria and proteinuria on UA
-Serology returned positive for anti-MO-3/C ANCA concerning for GPA
-Was started on steroid regimen with improved pulmonary status
-Renal function has remained stable, Cr in the range of 3.2-3.5
-Trend daily BMP and UOP and avoid nephrotoxins strictly
-Plan for renal biopsy on 11/28/2024
-Plan for OP rituximab
#Acute hypoxemic respiratory failure
#Diffuse alveolar hemorrhage
#Hemoptysis
-Due to renal pulmonary syndrome as above; required 50 L high flow upon arrival
-Had significant hemoptysis though did not qualify as massive; did not require intubation
-Had dramatic response to steroids and was weaned from 50 L down to 4 L O2
-On exam his lungs sound clear, no signs of respiratory distress
-Has been transition to oral steroid regimen with plan to taper
-Remains on empiric antibiotic regimen to complete 7 days (day 4/7)
-Continue to promote OOB activity, incentive spirometer
-Quantify hemoptysis when present
-SpO2 goal >90%
#Acute blood loss anemia
-Secondary to diffuse alveolar hemorrhage and hemoptysis
-Hemoglobin was as low as 6.5, received PRBCs with hemoglobin up to 8.3 today
-Hemoptysis is minimal to resolved, anticipate CBC will stabilize
-Continue to monitor daily CBC, hemoglobin goal >7
-SCDs for DVT prophylaxis, avoid AC and antiplatelet as possible
#Chronic GERD
-No known history of erosive disease or Ramirez's
-Home regimen includes as needed Pepcid
#Obesity
-BMI in the range of 29 of 30, steroids may make this worse in the short-term
DVT prophylaxis: SCDs
Diet: Regular
CODE STATUS: Full code
Anticipated Discharge: > 48 hours
Subjective/Interval History
-
Date of Service: November 26, 2024
Seen and examined at the bedside. No acute events reported overnight. AFVSS this morning.
Renal function stable with creatinine 3.2 this morning. Pending kidney biopsy on Thursday.
He denies any other new complaints today
Objective Data
-
Labs:
Laboratory Results
11/26/24
04:32
WBC 17.0 H
Hgb 8.3 L
Hct 25.4 L
Plt Count 359
Sodium 139
Potassium 4.5
Chloride 112 H
Carbon Dioxide 21 L
BUN 72 H
Creatinine 3.2 H
Glucose 106 H
Calcium 8.3 L
Vital Signs:
Vital Signs
Temp Pulse Resp BP Pulse Ox
97.9 F 49 15 106/66 94
11/26/24 11:22 11/26/24 06:00 11/25/24 08:00 11/26/24 06:00 11/26/24 06:00
I&O
11/25/24 11/26/24 11/27/24
06:59 06:59 07:59
Intake Total 1050 / 1050
Output Total 1775 / 1775 500 / 500 275 / 275
Balance -725 / -725 -500 / -500 -275 / -275
Review of Systems
-
History Source: Patient
All other systems: Reviewed and negative
Physical Exam
-
General: Well Developed, No Apparent Distress and Comfortable
HEENT: Normocephalic, Atraumatic, Moist Mucous Membranes and Anicteric
Respiratory: Clear to Auscultation and Non Labored Respirations
Cardiac: Regular Rhythm and S1/S2; Negative Murmur, Rub or Gallop
GI: Soft, Nontender, Nondistended and Normal Bowel Sounds
Musculoskeletal: No Clubbing, No Cyanosis and No Edema
Skin: Warm, Dry and Normal Turgor; Negative Rash
Neuro: AO x 3 and Nonfocal/Grossly Intact
Psych: Calm
Data Reviewed
-
Labs: Labs Reviewed by me and Discussed with Patient
--- NOTE | 2024-11-26 15:15 | W.PN.PUL3 ---
Today's Communication / Plan
-
-Can DC antibiotics after total of 7 days.
-Depending on the duration of steroid taper, might need PJP prophylaxis
Assessment
-
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 Notes sinus
symptoms as well. Saw OP care team and obtained CXR showing PNA. Sent to ER. notes patient started having hemoptysis as well at home [employer]SE [employer]RO[employer]. On arrival, noted to be 94% and requiring 2 L. COVID test was negative, flu test was negative. He had
a white count of 19,000, hemoglobin was 8.1 platelet count 363. BUN/creatinine were notable for being 42 and 3.5 respectively. D-dimer was elevated. Patient had a bilateral lower extremity Doppler studies that were negative for DVT. CT chest wo
performed due to CKD, extensive PNA noted. Hb notably dropped from 8.1 to 6.5. We are consulted for evaluation.
Acute hypoxic respiratory failure
Acute diffuse alveolar hemorrhage (DAH)
Hemoptysis, cough/productive
SOB
Abnormal CT scan
Suspect acute autoimmune flare
NESTOR on CKD
Acute blood loss anemia 2/2 DAH
Conditions present [employer]SE [employer]RO[employer] SUR[employer]ON
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
s/p renal biopsy 2021
Microscopic hematuria
ANCA anti-AZ-3 antibody positive
Positive EARNEST (antinuclear antibody)
Seasonal allergies
Overweight
GERD
Covid 2020
Plan
#1. Acute hypoxic respiratory failure on admission with bilateral infiltrate highly suggestive of acute diffuse alveolar hemorrhage (DAH)
-Suspect this is in the setting of underlying ANCA (AZ-3 positive)related pulmonary renal syndrome
-Patient is s/p IV steroid pulse doses, 500 mg x 3 days completed 11/24/2024, currently on 80 mg prednisone a day
-Responded well to steroids, clinically significantly improved
-Continue incentive spirometry, activity as tolerated
-Going forward patient will need immunosuppression to prevent future episodes
-Will discuss with nephrology service regarding MMF versus rituximab
-Patient likely will need PJP prophylaxis in the setting of prolonged prednisone taper. Bactrim might not be an option with his kidney injury, atovaquone can be an alternative
-Patient has completed 5 days of ceftriaxone and Zithromax, cultures have stayed negative
-If symptoms were to recur, will proceed with bronchoscopy and bronchial valor lavage. In the setting of life-threatening DAH, IVIG/plasmapheresis can also be considered
#2. Acute kidney injury.
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
-S/p pulse dose steroids, currently on prednisone, nephrology service on case
-Renal biopsy is planned
Had not been on immunosuppressives since diagnosis, s/p biopsy in 2021
NESTOR on CKD noted as well
Renal following for further recs
Can consider plasmapheresis if not responding to steroids
Anemia noted, no other outward signs of bleeding
Quantify hemoptysis
Sputum culture sent
Check proBNP as well for completeness
No prior ECHO for review, no history of cardiac disease
Monitor on telemetry
Smoking history is not noted
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
Will need outpatient pulmonary evaluation in our office for PFTs and 6MWT
Reviewed with patient
Discussed events/plan of care with care team
Diagnostic Data
Chest X-Ray: 11/21/24- Bilateral opacities including patchy opacities, most prominent in the right upper lobe, at least in part suggesting pneumonia/pneumonitis.
CT Scan: CHEST 11/21/24- Bilateral parenchymal airspace opacities, slightly greater on the right compared to the left, and these opacities relatively spare the periphery of both lungs. Main differential considerations of pneumonia and/or alveolar
hemorrhage, and findings may represent a combination of these processes. Pulmonary alveolar proteinosis is also a condition that is reported to have relative sparing the periphery of both lungs. No evidence for significant pleural effusion. No
evidence for significant pericardial effusion.
AP 05/10/24- 1 mm nonobstructing calculus in the lower pole of the left kidney. No right nephrolithiasis. No obstructive uropathy. Multilevel lumbar spondylosis with minimal 2 mm grade 1 retrolisthesis of L5 relative to S1. Lung cases are clear.
Duplex 11/21/24- No evidence of deep venous thrombosis bilaterally.
Echo:
PFT's:
Reports and relevant images were personally reviewed.
Total time spent on this encounter __51__ minutes which includes review of history, physical exam, medications, laboratory data, personal review of imaging, extensive review of outpatient records, discussion with care team and respiratory therapy.
Subjective Data
-
Date of Service:
Date of Service: November 26, 2024
Chief Complaint: Pulmonary Follow Up
Subjective:
Patient comfortably sitting in bed, overall much improved.
Objective Data
Data Reviewed
Vital Signs / I&O / Oxygen:
Vital Signs
Temp Pulse Resp BP Pulse Ox
97.9 F 64 22 133/90 94
11/26/24 11:22 11/26/24 14:00 11/26/24 14:00 11/26/24 14:00 11/26/24 14:00
Intake and Output
11/25/24 11/26/24 11/27/24
06:59 06:59 07:59
Intake Total 1050 / 1050
Output Total 1775 / 1775 500 / 500 275 / 275
Balance -725 / -725 -500 / -500 -275 / -275
SaO2 94
Nasal Cannula flow liters per 4
minute
Physical Exam
General: Comfortable and Other (NAD)
HEENT: Normocephalic, Anicteric and Moist Mucous Membranes
Cardiovascular: S1-S2 and Regular Rhythm
Respiratory: Crackles (minimal, improving) and Non-Labored Respirations
GI: Soft, Non Distended and Non Tender
Neurology: Awake, Alert, Oriented and No Motor Deficits
Skin: Warm, Dry and Good Color
Labs/Micro/Reports
Lab Data
11/26/24 04:32
11/26/24 04:32
Microbiology
11/22/24 02:16 Sputum Respiratory Culture - Final
Usual Respiratory Sheryl
11/22/24 02:16 Sputum Gram Stain - Final
[2024-11-26] MEDS: STERILE WATER FOR INJECTION 10 ML IV (17:38)
[2024-11-26] MEDS: ROCEPHIN 1000 MG IV (17:38)
[2024-11-26] MEDS: ZITHROMAX INFUSION 250 IV (17:38)
[2024-11-27] VITALS (12 sets, daily range): BP systolic 122–154; BP diastolic 83–104
--- NOTE | 2024-11-27 01:24 | PTCARENOTE ---
assumed care of patient. pt is AAOx3, family at bedside. able to make needs known. on 4L NC, 92%. able to walk to bathroom by self, just needs help with wires. no c/o pain. pt does admit to some SOB with exertion, but states he feels better. moist
productive cough noted. pt in good spirits. care ongoing.
[2024-11-27 04:57] LABS: % Basophils 0.1 % (0-2); % Eosinophils 0.1 % (0-6); % Immature Granulocytes 2.6 % (0-0.5); % Lymphocytes 7.2 % (20.5-51.1); % Monocytes 7.8 % (1.7-9.3); % Neutrophils 82.2 % (42.2-75.2); Absolute Immature Granulocytes 0.4 10^3/uL (0-0.05); Absolute Lymphocytes 1.1 10^3/uL (1.2-3.4); Absolute Monocytes 1.2 10^3/uL (0.1-0.6); Absolute Neutrophils 12.8 10^3/uL (1.4-6.5); Hemoglobin 8.9 g/dL (13.0-18.0); Mean Corp Hgb Conc. 31.8 g/dL (33.0-37.0); Mean Corpuscular Hgb 25.3 pg (27.0-31.0); Mean Corpuscular Volume 79.5 fL (80.0-94.0); Mean Platelet Volume 10.5 fL (7.4-10.4); Nucleated Red Blood Cells % 0 % (-); Platelet Count 399 10^3/uL (130-400); Red Blood Cell Count 3.52 10^6/uL (4.70-6.10); Red Cell Dist. Width 15.3 % (11.5-14.5); White Blood Cell Count 15.6 10^3/uL (4.8-10.8)
[2024-11-27 05:23] LABS: Blood Urea Nitrogen 67 mg/dl (9-20); Calcium 8.3 mg/dl (8.4-10.2); Carbon Dioxide 18 mmol/L (22-30); Chloride 108 mmol/L (98-107); Estimated Creatinine Clearance 38 ml/min; Glucose 110 mg/dl (70-99); Potassium 4.4 mmol/L (3.5-5.1); Sodium 138 mmol/L (135-145); eGFR 24.69
[2024-11-27] MEDS: MUCINEX 600 MG PO ×2 (08:12→20:31)
[2024-11-27] MEDS: DELTASONE 80 MG PO (08:12)
--- NOTE | 2024-11-27 10:37 | W.PN.HOSP.TC ---
Today's Communication/Plan
-
Biopsy tomorrow
Continue steroid
Last day of antibiotics
Wean oxygen and monitor hemoptysis
Incentive spirometer OOB activity
Likely will need PJP prophylaxis at DC
Monitor bowel movements and start probiotic
Assessment / Plan
Assessment / Plan
#Renal pulmonary syndrome
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
-Clinical pattern however is not totally consistent with Chuck's
-Planning for renal biopsy on 11/28 to obtain formal diagnosis
-S/p IV steroid, now on oral regimen of 80 mg prednisone daily
-Anticipate he will need a long steroid taper pending OP Rituxan
-QuantiFERON gold ordered, follow-up TB result
-Consider PJP prophylaxis for prolonged steroid taper
-See below for more detail
#Nephritic syndrome
#NESTOR on CKD 3
-Previous diagnosis of FSGS with renal biopsy in 2021; baseline creatinine 1.5
-Presented with hemoptysis and creatinine up to 3.5; microscopic hematuria and proteinuria on UA
-Serology returned positive for anti-TN-3/C ANCA concerning for GPA
-Was started on steroid regimen with improved pulmonary status
-Renal function has remained stable, Cr in the range of 3.0-3.5
-Trend daily BMP and UOP and avoid nephrotoxins strictly
-Plan for renal biopsy on 11/28/2024
-Plan for OP rituximab
#Acute hypoxemic respiratory failure
#Diffuse alveolar hemorrhage
#Hemoptysis
-Due to renal pulmonary syndrome as above; required 50 L high flow upon arrival
-Had significant hemoptysis though did not qualify as massive; did not require intubation
-Had dramatic response to steroids and was weaned from 50 L down to 4 L O2
-On exam his lungs sound clear, no signs of respiratory distress
-Has been transition to oral steroid regimen with plan to taper
-Remains on empiric antibiotic regimen to complete 7 days (day 4)
-Continue to promote OOB activity, incentive spirometer
-Quantify hemoptysis when present
-SpO2 goal >90%
#Acute blood loss anemia
-Secondary to diffuse alveolar hemorrhage and hemoptysis
-Hemoglobin was as low as 6.5, received PRBCs with hemoglobin up to 8.3 today
-Hemoptysis is minimal to resolved, anticipate CBC will stabilize
-SCDs for DVT prophylaxis, avoid AC and antiplatelet as possible
-Microcytosis on labs, will order iron studies and B vitamin panel
-Continue to monitor daily CBC, hemoglobin goal >7
#Chronic GERD
-No known history of erosive disease or Ramirez's
-Home regimen includes as needed Pepcid
#Obesity
-BMI in the range of 29 of 30, steroids may make this worse in the short-term
#Leukocytosis
-Secondary to demargination from steroid
-No active fevers, on antibiotics as above
-Trend CBC interventricular
#Loose stools
-Likely secondary to antibiotics; nursing states does not qualify for C. difficile criteria
-Will start probiotic while completing antibiotic regimen
-Monitor bowel movements and consider stool studies if worsening watery stool
DVT prophylaxis: SCDs
Diet: Regular
CODE STATUS: Full code
Anticipated Discharge: > 48 hours
Subjective/Interval History
-
Date of Service: November 27, 2024
Seen and examined at bedside. No acute events reported overnight. AFVSS on 4 L oxygen with SpO2 95%
Renal function improving with creatinine down to 3.0. Patient with some dried blood produced with coughing though no active bleeding
Denies any new complaints, states he feels generally well today
Objective Data
-
Labs:
Laboratory Results
11/27/24
04:28
WBC 15.6 H
Hgb 8.9 L
Hct 28.0 L
Plt Count 399
Sodium 138
Potassium 4.4
Chloride 108 H
Carbon Dioxide 18 L
BUN 67 H
Creatinine 3.0 H
Glucose 110 H
Calcium 8.3 L
Vital Signs:
Vital Signs
Temp Pulse Resp BP Pulse Ox
98.1 F 42 19 122/87 94
11/27/24 07:01 11/27/24 06:00 11/27/24 06:00 11/27/24 06:00 11/27/24 06:00
I&O
11/26/24 11/27/24 11/28/24
05:59 06:59 06:59
Intake Total 480 / 480
Output Total
Balance 480 / 480
Review of Systems
-
History Source: Patient
All other systems: Reviewed and negative
Physical Exam
-
General: Well Developed, No Apparent Distress and Obese
HEENT: Normocephalic, Atraumatic and Moist Mucous Membranes
Respiratory: Clear to Auscultation and Non Labored Respirations
Cardiac: Regular Rhythm and S1/S2; Negative Murmur, Rub or Gallop
GI: Soft, Nontender, Nondistended and Normal Bowel Sounds
Musculoskeletal: No Clubbing, No Cyanosis and No Edema
Skin: Warm, Dry and Normal Turgor; Negative Rash
Neuro: AO x 3 and Nonfocal/Grossly Intact; Negative Tremors
Psych: Calm
Data Reviewed
-
Labs: Labs Reviewed by me and Discussed with Patient
--- NOTE | 2024-11-27 12:25 | W.PN.NEPH.PH ---
Today's Communication / Plan
-
K biopsy tomorrow
Assessment/Plan
-
IMP:
Acute hypoxic respiratory failure with hemoptysis
Acute diffuse alveolar hemorrhage (DAH)
NESTOR with CKD 3-baseline cr 1.1-1.4, suspect acute pulmonary�renal syndrome
Biopsy-proven FSGS 2021
baseline weakly positive PR3
Acute blood loss anemia secondary to alveolar hemorrhage.
Microcytosis
GERD
Plan:
A/w hemoptysis and sob
noted alveolar hemorrhage and NESTOR suspect of pulm renal syndrome
NESTOR-cr better at 3, fortunately non oliguric-monitor UOP
UA with hematuria and U PCR 3.8gm/gm of cr
PR3 +ve, titer up 119. neg anti GBM and hepatitis panel
plan K biopsy on Thursday , spoke with Rheum on 11/25-will arrange RTX out pt
quantiferon ordered
Alveolar hemorrhage responded well to steroids and wean O2 as able
cont prednisone 80mg daily , completed pulse steroids
mild met acidosis ass po bicarb
BP stable
antibiotics renally dosed
monitor azotemia from steroids
hb stable, prn transfusion
d/w pt and in detail
-
-
Date of Service: November 27, 2024
CC / HPI / ROS
-
Chief Complaint:
Acute kidney injury
History of Present Illness:
Creatinine better at 3.
Hemodynamically stable
on prednisone
Hemoglobin at 8.9 stable
Review of Systems:
no hemoptysis
down to 2-3lit of O2
Nonoliguric
No chest pain
Labs
-
Labs:
WBC 15.6 10^3/uL (4.8-10.8) H 11/27/24 04:28
RBC 3.52 10^6/uL (4.70-6.10) L 11/27/24 04:28
Hgb 8.9 g/dL (13.0-18.0) L 11/27/24 04:28
Hct 28.0 % (39.0-52.0) L 11/27/24 04:28
Plt Count 399 10^3/uL (130-400) 11/27/24 04:28
Sodium 138 mmol/L (135-145) 11/27/24 04:28
Potassium 4.4 mmol/L (3.5-5.1) 11/27/24 04:28
Chloride 108 mmol/L (98-107) H 11/27/24 04:28
Carbon Dioxide 18 mmol/L (22-30) L 11/27/24 04:28
BUN 67 mg/dl (9-20) H 11/27/24 04:28
Creatinine 3.0 mg/dL (0.7-1.3) H 11/27/24 04:28
eGFR 24.69 11/27/24 04:28
Glucose 110 mg/dl (70-99) H 11/27/24 04:28
Calcium 8.3 mg/dl (8.4-10.2) L 11/27/24 04:28
Htc-J-Hahhasuyhzp Pept 243 pg/ml 11/22/24 04:08
Albumin 2.5 g/dl (3.5-5.0) L 11/23/24 02:27
Physical Exam
-
Vital Signs:
Vital Signs
Temp Pulse Resp BP Pulse Ox
97.9 F 69 22 124/84 94
11/27/24 11:16 11/27/24 10:00 11/27/24 09:45 11/27/24 09:45 11/27/24 10:56
Cardiovascular:: Regular rate and rhythm
Respiratory:: Bilateral: CTA
Lung Excursion:: Normal
Abdomen:: Nontender and Soft
Bowel Sounds:: Normal
Extremity Edema:: None: Bilateral:
[place] Catheter: No
[2024-11-27] MEDS: VISBIOME 2 CAP PO (12:32)
--- NOTE | 2024-11-27 13:06 | W.PN.PUL3 ---
Today's Communication / Plan
-
-Continue to wean oxygen as tolerated
-Follow-up chest x-ray in a.m.
-Can DC antibiotics
-Depending on the duration of steroid taper, will need PJP prophylaxis
Assessment
-
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 Notes sinus
symptoms as well. Saw OP care team and obtained CXR showing PNA. Sent to ER. notes patient started having hemoptysis as well at home [employer]OR OF [employer]AF[employer]. On arrival, noted to be 94% and requiring 2 L. COVID test was negative, flu test was negative. He had
a white count of 19,000, hemoglobin was 8.1 platelet count 363. BUN/creatinine were notable for being 42 and 3.5 respectively. D-dimer was elevated. Patient had a bilateral lower extremity Doppler studies that were negative for DVT. CT chest wo
performed due to CKD, extensive PNA noted. Hb notably dropped from 8.1 to 6.5. We are consulted for evaluation.
Acute hypoxic respiratory failure
Acute diffuse alveolar hemorrhage (DAH)
Hemoptysis, cough/productive
SOB
Abnormal CT scan
Suspect acute autoimmune flare
NESTOR on CKD
Acute blood loss anemia 2/2 DAH
Conditions present [employer]AFET[employer]
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
s/p renal biopsy 2021
Microscopic hematuria
ANCA anti-VA-3 antibody positive
Positive EARNEST (antinuclear antibody)
Seasonal allergies
Overweight
GERD
Covid 2020
Plan
#1. Acute hypoxic respiratory failure on admission with bilateral infiltrate highly suggestive of acute diffuse alveolar hemorrhage (DAH)
-Suspect this is in the setting of underlying ANCA (VA-3 positive)related pulmonary renal syndrome
-Patient is s/p IV steroid pulse doses, 500 mg x 3 days completed 11/24/2024, currently on 80 mg prednisone a day
-Responded well to steroids, clinically significantly improved, f/u CXR improving. Down to 4 ltr O2 now.
-Continue incentive spirometry, activity as tolerated
-Going forward patient will need immunosuppression to prevent future episodes
-Scheduled for renal biopsy 11/28. Will need discussion with Renal service regarding [facility] immuo-modulator choice once nearing discharge planning.
-Patient likely will need PJP prophylaxis in the setting of prolonged prednisone taper. Bactrim might not be an option with his kidney injury, atovaquone can be an alternative
-Patient has completed 5 days of ceftriaxone and Zithromax, cultures have stayed negative, can d/c antibiotics
-If symptoms were to recur, will proceed with bronchoscopy and bronchial valor lavage. In the setting of life-threatening DAH, IVIG/plasmapheresis can also be considered
#2. Acute kidney injury.
-Suspect this is related to ANCA associated vasculitis, pulmonary renal syndrome, VA-3 positive.
-S/p pulse dose steroids, currently on prednisone, nephrology service on case
-Renal biopsy is planned
Had not been on immunosuppressives since diagnosis, s/p biopsy in 2021
NESTOR on CKD noted as well
Renal following for further recs
Can consider plasmapheresis if not responding to steroids
Anemia noted, no other outward signs of bleeding
Quantify hemoptysis
Sputum culture sent
Check proBNP as well for completeness
No prior ECHO for review, no history of cardiac disease
Monitor on telemetry
Smoking history is not noted
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
Will need outpatient pulmonary evaluation in our office for PFTs and 6MWT
Reviewed with patient
Discussed events/plan of care with care team
Diagnostic Data
Chest X-Ray: 11/21/24- Bilateral opacities including patchy opacities, most prominent in the right upper lobe, at least in part suggesting pneumonia/pneumonitis.
CT Scan: CHEST 11/21/24- Bilateral parenchymal airspace opacities, slightly greater on the right compared to the left, and these opacities relatively spare the periphery of both lungs. Main differential considerations of pneumonia and/or alveolar
hemorrhage, and findings may represent a combination of these processes. Pulmonary alveolar proteinosis is also a condition that is reported to have relative sparing the periphery of both lungs. No evidence for significant pleural effusion. No
evidence for significant pericardial effusion.
AP 05/10/24- 1 mm nonobstructing calculus in the lower pole of the left kidney. No right nephrolithiasis. No obstructive uropathy. Multilevel lumbar spondylosis with minimal 2 mm grade 1 retrolisthesis of L5 relative to S1. Lung cases are clear.
Duplex 11/21/24- No evidence of deep venous thrombosis bilaterally.
Echo:
PFT's:
Reports and relevant images were personally reviewed.
Total time spent on this encounter __25__ minutes which includes review of history, physical exam, medications, laboratory data, personal review of imaging, extensive review of outpatient records, discussion with care team and respiratory therapy.
Subjective Data
-
Date of Service:
Date of Service: November 27, 2024
Chief Complaint: Pulmonary Follow Up
Subjective:
Patient sitting in bed in no acute distress. Reports feeling much better. No expectoration, further hemoptysis.
Review of Systems
Genitourinary: Other (All 14 systems reviewed and negative except as stated above in the history of present illness.)
Objective Data
Data Reviewed
Vital Signs / I&O / Oxygen:
Vital Signs
Temp Pulse Resp BP Pulse Ox
97.9 F 69 22 124/84 94
11/27/24 11:16 11/27/24 10:00 11/27/24 09:45 11/27/24 09:45 11/27/24 10:56
Intake and Output
11/26/24 11/27/24 11/28/24
05:59 06:59 06:59
Intake Total 480 / 480
Output Total
Balance 480 / 480
SaO2 94
Nasal Cannula flow liters per 4
minute
Physical Exam
General: Comfortable
HEENT: Normocephalic
Cardiovascular: S1-S2
Respiratory: Clear
GI: Soft and Non Distended
Neurology: Awake, Alert and AO x 3
Skin: Warm and Dry
Labs/Micro/Reports
Lab Data
11/27/24 04:28
11/27/24 04:28
Microbiology
11/22/24 02:16 Sputum Respiratory Culture - Final
Usual Respiratory Sheryl
11/22/24 02:16 Sputum Gram Stain - Final
[2024-11-27] MEDS: SODIUM BICARBONATE 650 MG PO ×2 (15:09→20:31)
[2024-11-27] MEDS: STERILE WATER FOR INJECTION 10 ML IV (17:59)
[2024-11-27] MEDS: ZITHROMAX INFUSION 250 IV (18:00)
[2024-11-27] MEDS: ROCEPHIN 1000 MG IV (18:00)
[2024-11-28] VITALS (27 sets, daily range): BP systolic 127–158; BP diastolic 73–97; PULSE 55; O2SAT 97
[2024-11-28 06:37] LABS: % Basophils 0.1 % (0-2); % Eosinophils 0.4 % (0-6); % Immature Granulocytes 2.3 % (0-0.5); % Lymphocytes 8.9 % (20.5-51.1); % Monocytes 8.9 % (1.7-9.3); % Neutrophils 79.4 % (42.2-75.2); Absolute Eosinophils 0.1 10^3/uL (0-0.7); Absolute Immature Granulocytes 0.3 10^3/uL (0-0.05); Absolute Lymphocytes 1.3 10^3/uL (1.2-3.4); Absolute Monocytes 1.3 10^3/uL (0.1-0.6); Absolute Neutrophils 11.2 10^3/uL (1.4-6.5); Hematocrit 26.1 % (39.0-52.0); Hemoglobin 8.6 g/dL (13.0-18.0); Mean Corpuscular Hgb 26.1 pg (27.0-31.0); Mean Corpuscular Volume 79.3 fL (80.0-94.0); Mean Platelet Volume 10.7 fL (7.4-10.4); Nucleated Red Blood Cells % 0 % (-); Platelet Count 359 10^3/uL (130-400); Red Blood Cell Count 3.29 10^6/uL (4.70-6.10); Red Cell Dist. Width 15.5 % (11.5-14.5); White Blood Cell Count 14.1 10^3/uL (4.8-10.8)
[2024-11-28 06:54] LABS: Quantiferon Mitogen minus NIL 0.35 IU/mL; Quantiferon TB Gold Plus Indeterminate (Negative)
[2024-11-28 06:59] LABS: Blood Urea Nitrogen 63 mg/dl (9-20); Calcium 8.3 mg/dl (8.4-10.2); Carbon Dioxide 19 mmol/L (22-30); Chloride 110 mmol/L (98-107); Estimated Creatinine Clearance 39 ml/min; Glucose 104 mg/dl (70-99); Iron 49 ug/dl (49-181); Potassium 4.5 mmol/L (3.5-5.1); Sodium 137 mmol/L (135-145); eGFR 25.71
[2024-11-28 07:08] LABS: Percent Saturation 19 % (20-50); Total Iron Binding Capacity 249 ug/dl (261-462)
[2024-11-28] MEDS: SODIUM BICARBONATE 650 MG PO ×2 (08:02→20:19)
[2024-11-28] MEDS: MUCINEX 600 MG PO ×2 (08:02→20:19)
[2024-11-28] MEDS: DELTASONE 80 MG PO (08:02)
[2024-11-28] MEDS: VISBIOME 2 CAP PO (08:03)
[2024-11-28 08:05] LABS: Vitamin B12 887 pg/ml (239-931)
--- NOTE | 2024-11-28 09:44 | W.PN.PUL.V3 ---
Today's Communication / Plan
-
no change in prednisone.
Oxygen.
Increase activity
Assessment
-
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 Notes sinus
symptoms as well. Saw OP care team and obtained CXR showing PNA. Sent to ER. 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 On arrival, noted to be 94% and requiring 2 L. COVID test was negative, flu test was negative. He had
a white count of 19,000, hemoglobin was 8.1 platelet count 363. BUN/creatinine were notable for being 42 and 3.5 respectively. D-dimer was elevated. Patient had a bilateral lower extremity Doppler studies that were negative for DVT. CT chest wo
performed due to CKD, extensive PNA noted. Hb notably dropped from 8.1 to 6.5. We are consulted for evaluation.
Acute hypoxic respiratory failure
Acute diffuse alveolar hemorrhage (DAH)
Hemoptysis, cough/productive
SOB
Abnormal CT scan
Suspect acute autoimmune flare
NESTOR on CKD
Acute blood loss anemia 2/2 DAH
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
s/p renal biopsy 2021
Microscopic hematuria
ANCA anti-HI-3 antibody positive
Positive EARNEST (antinuclear antibody)
Seasonal allergies
Overweight
Plan
Respiratory failure secondary to probable diffuse alveolar hemorrhage/ANCA-pulmonary renal syndrome
Wean supplemental options.
Incentive spirometry.
Quantify hemoptysis.
Nebulizers if needed.
Mucolytic's
Status post pulse steroids.
Prednisone 80 mg daily..
Might require PEG P prophylaxis-consider atovaquone as Bactrim may be inappropriate with renal failure.
IVIG/plasmapheresis could be considered if there is life-threatening diffuse alveolar hemorrhage
Follow radiographically
Renal biopsy 11/28/24-pending.
Nephrology following-correspondence reviewed.
Suspect a GI related to ANCA associated/HI 3 positive vasculiPR
DVT prophylaxis recommended..
Nutrition
Increase activity/physical therapy
Will need outpatient pulmonary evaluation in our office for PFTs and 6MWT
Diagnostic Data
Chest X-Ray: 11/21/24- Bilateral opacities including patchy opacities, most prominent in the right upper lobe, at least in part suggesting pneumonia/pneumonitis.
CT Scan: CHEST 11/21/24- Bilateral parenchymal airspace opacities, slightly greater on the right compared to the left, and these opacities relatively spare the periphery of both lungs. Main differential considerations of pneumonia and/or alveolar
hemorrhage, and findings may represent a combination of these processes. Pulmonary alveolar proteinosis is also a condition that is reported to have relative sparing the periphery of both lungs. No evidence for significant pleural effusion. No
evidence for significant pericardial effusion.
AP 05/10/24- 1 mm nonobstructing calculus in the lower pole of the left kidney. No right nephrolithiasis. No obstructive uropathy. Multilevel lumbar spondylosis with minimal 2 mm grade 1 retrolisthesis of L5 relative to S1. Lung cases are clear.
Duplex 11/21/24- No evidence of deep venous thrombosis bilaterally.
.
Subjective Data
-
Date of Service:
Date of Service: November 28, 2024
Chief Complaint: Pulmonary Follow Up and Dyspnea Follow Up
Subjective:
Feels better, less short of breath, ambulating and recovering faster, no chest pain, no hemoptysis, no abdominal pain
Review of Systems
General: Other ( her HPI)
Objective Data
Data Reviewed
Vital Signs / I&O:
Vital Signs
Temp Pulse Resp BP Pulse Ox
98.5 F 50 19 137/90 93
11/28/24 03:00 11/28/24 08:00 11/28/24 08:00 11/28/24 08:00 11/28/24 08:00
Intake and Output
11/27/24 11/28/24 11/29/24
06:59 06:59 06:59
Intake Total 480 / 480
Output Total 490 / 490
Balance -
SaO2: 93
Nasal Cannula flow liters per minute: 4
Physical Exam
General: Respiratory Distress (n) and Comfortable
HEENT: Normocephalic
Cardiovascular: Regular Rhythm
Respiratory: Clear, Wheeze (n), Crackles ( rare basilar), Rhonchi (n), Non-Labored Respirations, Accessory Resp Muscle Use (n) and Stridor (n)
GI: Soft and Non Distended
Neurology: Awake, Alert and AO x 3
Skin: Warm, Dry, Good Color, Cyanosis (n) and Jaundice (n)
Labs/Micro/Reports
Lab Data
11/28/24 06:04
11/28/24 06:04
--- NOTE | 2024-11-28 09:54 | W.PN.NEPH.PH ---
Today's Communication / Plan
-
follow BMP
Assessment/Plan
-
IMP:
Acute hypoxic respiratory failure with hemoptysis
Acute diffuse alveolar hemorrhage (DAH)
NESTOR with CKD 3-baseline cr 1.1-1.4, suspect acute pulmonary�renal syndrome
Biopsy-proven FSGS 2021
baseline weakly positive PR3
Acute blood loss anemia secondary to alveolar hemorrhage.
Microcytosis
GERD
Plan:
for biopsy renal
prednisone continues
would use atovaquone for prophylaxis instead of bactrim
follow BMP
-
-
Date of Service: November 28, 2024
CC / HPI / ROS
-
Chief Complaint:
Acute kidney injury
History of Present Illness:
Creatinine better at 2.9
Hemodynamically stable
on high dose prednisone for ANCA vasculitis
Hemoglobin at 8.6 stable
Review of Systems:
no hemoptysis
Nonoliguric
No chest pain
Labs
-
Labs:
WBC 14.1 10^3/uL (4.8-10.8) H 11/28/24 06:04
RBC 3.29 10^6/uL (4.70-6.10) L 11/28/24 06:04
Hgb 8.6 g/dL (13.0-18.0) L 11/28/24 06:04
Hct 26.1 % (39.0-52.0) L 11/28/24 06:04
Plt Count 359 10^3/uL (130-400) 11/28/24 06:04
Sodium 137 mmol/L (135-145) 11/28/24 06:04
Potassium 4.5 mmol/L (3.5-5.1) 11/28/24 06:04
Chloride 110 mmol/L (98-107) H 11/28/24 06:04
Carbon Dioxide 19 mmol/L (22-30) L 11/28/24 06:04
BUN 63 mg/dl (9-20) H 11/28/24 06:04
Creatinine 2.9 mg/dL (0.7-1.3) H 11/28/24 06:04
eGFR 25.71 11/28/24 06:04
Glucose 104 mg/dl (70-99) H 11/28/24 06:04
Calcium 8.3 mg/dl (8.4-10.2) L 11/28/24 06:04
Ccw-M-Urrchtmuojw Pept 243 pg/ml 11/22/24 04:08
Albumin 2.5 g/dl (3.5-5.0) L 11/23/24 02:27
Physical Exam
-
Vital Signs:
Vital Signs
Temp Pulse Resp BP Pulse Ox
98.5 F 50 19 137/90 93
11/28/24 03:00 11/28/24 08:00 11/28/24 08:00 11/28/24 08:00 11/28/24 09:44
Cardiovascular:: Regular rate and rhythm
Respiratory:: Bilateral: Coarse
Lung Excursion:: Normal
Abdomen:: Nontender and Soft
Bowel Sounds:: Normal
Extremity Edema:: None: Bilateral:
--- NOTE | 2024-11-28 10:38 | PTCARENOTE ---
Patient ambulated to stretcher assist x1 to IR.
[2024-11-28] MEDS: APRESOLINE 5 MG IV (11:30)
[2024-11-28] MEDS: APRESOLINE 10 MG IV (12:35)
--- NOTE | 2024-11-28 13:15 | W.PN.HOSP.TC ---
Today's Communication/Plan
-
Attempting to wean off O2.
Continue prednisone.
Renal biopsy.
Assessment / Plan
Assessment / Plan
#Renal pulmonary syndrome
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
-Clinical pattern however is not totally consistent with Chuck's
-Planning for renal biopsy on 11/28 to obtain formal diagnosis
-S/p IV steroid, now on oral regimen of 80 mg prednisone daily
-Anticipate he will need a long steroid taper pending OP Rituxan
-QuantiFERON gold ordered, follow-up TB result
-Consider PJP prophylaxis for prolonged steroid taper. Appropriate action would be atovaquone (NESTOR/CKD with contraindication to TMP sulfa)
-See below for more detail
#Nephritic syndrome
#NESTOR on CKD 3
-Previous diagnosis of FSGS with renal biopsy in 2021; baseline creatinine 1.5
-Presented with hemoptysis and creatinine up to 3.5; microscopic hematuria and proteinuria on UA
-Serology returned positive for anti-GA-3/C ANCA concerning for GPA
-Was started on steroid regimen with improved pulmonary status
-Renal function has remained stable, Cr in the range of 3.0-3.5
-Trend daily BMP and UOP and avoid nephrotoxins strictly
-Plan for renal biopsy on 11/28/2024
-Plan for OP rituximab
#Acute hypoxemic respiratory failure
#Diffuse alveolar hemorrhage
#Hemoptysis
-Due to renal pulmonary syndrome as above; required 50 L high flow upon arrival
-Had significant hemoptysis though did not qualify as massive; did not require intubation
-Had dramatic response to steroids and was weaned from 50 L down to 4 L O2
-On exam his lungs sound clear, no signs of respiratory distress
-Has been transition to oral steroid regimen with plan to taper
-Remains on empiric antibiotic regimen to complete 7 days (day 4)
-Continue to promote OOB activity, incentive spirometer
-Quantify hemoptysis when present
-SpO2 goal >90%
#Acute blood loss anemia
-Secondary to diffuse alveolar hemorrhage and hemoptysis
-Hemoglobin was as low as 6.5, received PRBCs with hemoglobin up to 8.3 today
-Hemoptysis is minimal to resolved, anticipate CBC will stabilize
-SCDs for DVT prophylaxis, avoid AC and antiplatelet as possible
-Microcytosis on labs, will order iron studies and B vitamin panel
-Continue to monitor daily CBC, hemoglobin goal >7
#Chronic GERD
-No known history of erosive disease or Ramirez's
-Home regimen includes as needed Pepcid
#Obesity
-BMI in the range of 29 of 30, steroids may make this worse in the short-term
#Leukocytosis
-Secondary to demargination from steroid
-No active fevers, on antibiotics as above
-Trend CBC interventricular
#Loose stools
-Likely secondary to antibiotics; nursing states does not qualify for C. difficile criteria
-Will start probiotic while completing antibiotic regimen
-Monitor bowel movements and consider stool studies if worsening watery stool
DVT prophylaxis: SCDs
Diet: Regular
CODE STATUS: Full code
Anticipated Discharge: 24 - 48 hours
Subjective/Interval History
-
Date of Service: November 28, 2024
Objective Data
-
Labs:
Laboratory Results
11/28/24
06:04
WBC 14.1 H
Hgb 8.6 L
Hct 26.1 L
Plt Count 359
Sodium 137
Potassium 4.5
Chloride 110 H
Carbon Dioxide 19 L
BUN 63 H
Creatinine 2.9 H
Glucose 104 H
Calcium 8.3 L
Vital Signs:
Vital Signs
Temp Pulse Resp BP Pulse Ox
97.6 F 45 14 137/84 95
11/28/24 07:55 11/28/24 12:35 11/28/24 10:28 11/28/24 12:35 11/28/24 10:32
I&O
11/27/24 11/28/24 11/29/24
06:59 06:59 06:59
Intake Total 480 / 480
Output Total 490 / 490
Balance -
Physical Exam
-
General: Well Developed, No Apparent Distress and Obese
HEENT: Normocephalic, Atraumatic and Moist Mucous Membranes
Respiratory: Clear to Auscultation and Non Labored Respirations
Cardiac: Regular Rhythm and S1/S2; Negative Murmur, Rub or Gallop
GI: Soft, Nontender, Nondistended and Normal Bowel Sounds
Musculoskeletal: No Clubbing, No Cyanosis and No Edema
Skin: Warm, Dry and Normal Turgor; Negative Rash
Neuro: AO x 3 and Nonfocal/Grossly Intact; Negative Tremors
Psych: Calm
--- NOTE | 2024-11-28 14:07 | PTCARENOTE ---
Patient arrived back to IMU. Site check and VS completed per order. Bandaid clean dry and intact. HOB <30 degrees. Family at bedside. Call oconnell within reach, bed in lowest position, and bed of wheels locked.
--- NOTE | 2024-11-28 17:32 | PTCARENOTE ---
Patient AOx3. NSR-sinus nimesh on monitor. Patient weaned to RA with SpO2 greater than 92%. Kidney biopsy completed during shift. Bandaid in medial back C/D/I. See worklist for site checks and VS per order. Assist x1 when OOB. Patient tolerating
regular diet. Patients at bedside. Call oconnell within reach, bed in lowest position, and bed of wheels locked.
[2024-11-28 17:41] LABS: Hematocrit 30.8 % (39.0-52.0); Hemoglobin 9.9 g/dL (13.0-18.0)
--- NOTE | 2024-11-28 17:53 | PTCARENOTE ---
Dr. Norman made aware of H&H result 4 hours post kidney biopsy per order. Care going.
--- NOTE | 2024-11-28 23:02 | PTCARENOTE ---
Assumed care of Pt from previous RN. Pt AAOx3, at bedside. NSR/sinus nimesh on monitor. Pt satting 95% on RA. Assessment as documented. call light in reach.
[2024-11-29] VITALS (12 sets, daily range): BP systolic 117–154; BP diastolic 73–93
[2024-11-29 05:31] LABS: Hematocrit 26.8 % (39.0-52.0); Hemoglobin 8.7 g/dL (13.0-18.0); Mean Corp Hgb Conc. 32.5 g/dL (33.0-37.0); Mean Corpuscular Hgb 25.7 pg (27.0-31.0); Mean Corpuscular Volume 79.3 fL (80.0-94.0); Mean Platelet Volume 10.8 fL (7.4-10.4); Platelet Count 376 10^3/uL (130-400); Red Blood Cell Count 3.38 10^6/uL (4.70-6.10); Red Cell Dist. Width 15.8 % (11.5-14.5); White Blood Cell Count 15.9 10^3/uL (4.8-10.8)
[2024-11-29 05:55] LABS: Blood Urea Nitrogen 67 mg/dl (9-20); Calcium 8.1 mg/dl (8.4-10.2); Carbon Dioxide 20 mmol/L (22-30); Chloride 108 mmol/L (98-107); Estimated Creatinine Clearance 41 ml/min; Glucose 112 mg/dl (70-99); Potassium 4.6 mmol/L (3.5-5.1); Sodium 137 mmol/L (135-145); eGFR 26.82
[2024-11-29] MEDS: DELTASONE 80 MG PO (08:18)
[2024-11-29] MEDS: SODIUM BICARBONATE 650 MG PO ×2 (08:18→20:13)
[2024-11-29] MEDS: VISBIOME 2 CAP PO (08:18)
[2024-11-29] MEDS: MUCINEX 600 MG PO ×2 (08:18→20:13)
--- NOTE | 2024-11-29 09:08 | CM ---
Patient with Dx Acute hypoxic respiratory failure, DAH/Diffuse Alveolar Hemorrhage, s/p renal biopsy. Room air. Receiving Prednisone. PT; likely no needs.
Plan home.
--- NOTE | 2024-11-29 09:51 | PTCARENOTE ---
Patient ambulated approx 400 feet on RA with SpO2 92-95%. HR stable during ambulation. Care ongoing.
--- NOTE | 2024-11-29 10:02 | W.PN.PUL.V3 ---
Today's Communication / Plan
-
Prednisone
PJP prophylaxis
Wean oxygen
Increase activity
Await renal biopsy
Outpatient pulmonary follow-up
Assessment
-
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 Notes sinus
symptoms as well. Saw OP care team and obtained CXR showing PNA. Sent to ER. notes patient started having hemoptysis as well at home [employer]. On arrival, noted to be 94% and requiring 2 L. COVID test was negative, flu test was negative. He had
a white count of 19,000, hemoglobin was 8.1 platelet count 363. BUN/creatinine were notable for being 42 and 3.5 respectively. D-dimer was elevated. Patient had a bilateral lower extremity Doppler studies that were negative for DVT. CT chest wo
performed due to CKD, extensive PNA noted. Hb notably dropped from 8.1 to 6.5. We are consulted for evaluation.
Acute hypoxic respiratory failure
Acute diffuse alveolar hemorrhage (DAH)
Hemoptysis, cough/productive
SOB
Abnormal CT scan
Suspect acute autoimmune flare
NESTOR on CKD
Acute blood loss anemia 2/2 DAH
Conditions present [employer]
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
s/p renal biopsy 2021
Microscopic hematuria
ANCA anti-PA-3 antibody positive
Positive EARNEST (antinuclear antibody)
Seasonal allergies
Overweight
Plan
Respiratory failure secondary to probable diffuse alveolar hemorrhage/ANCA-pulmonary renal syndrome
Wean supplemental options-now on room air
Rest and exercise oximetry 11/29/2024-did not desaturate below 90% on room air
Incentive spirometry.
Quantify zbfrnmnihj-[id number]-nqpf taper
Nebulizers if needed.
Mucolytic's continue
Status post pulse steroids.
Prednisone 80 mg daily..
Add PJP prophylaxis-consider atovaquone as Bactrim may be inappropriate with renal failure.
IVIG/plasmapheresis could be considered if there is life-threatening diffuse alveolar hemorrhage
Follow radiographically
Renal biopsy 11/28/24-pending.
Nephrology following-correspondence reviewed-also reviewed personally with Dr. Norman on 11/29/2024.
Suspect a GI related to ANCA associated/PA 3 positive vasculiPR
DVT prophylaxis recommended-Now quite mobile, walking and out of bed vasculitis
Nutrition
Increase activity/physical therapy
Will need outpatient pulmonary evaluation in our office for PFTs and 6MWT
Diagnostic Data
Chest X-Ray: 11/21/24- Bilateral opacities including patchy opacities, most prominent in the right upper lobe, at least in part suggesting pneumonia/pneumonitis.
CT Scan: CHEST 11/21/24- Bilateral parenchymal airspace opacities, slightly greater on the right compared to the left, and these opacities relatively spare the periphery of both lungs. Main differential considerations of pneumonia and/or alveolar
hemorrhage, and findings may represent a combination of these processes. Pulmonary alveolar proteinosis is also a condition that is reported to have relative sparing the periphery of both lungs. No evidence for significant pleural effusion. No
evidence for significant pericardial effusion.
AP 05/10/24- 1 mm nonobstructing calculus in the lower pole of the left kidney. No right nephrolithiasis. No obstructive uropathy. Multilevel lumbar spondylosis with minimal 2 mm grade 1 retrolisthesis of L5 relative to S1. Lung cases are clear.
Duplex 11/21/24- No evidence of deep venous thrombosis bilaterally.
.
Subjective Data
-
Date of Service:
Date of Service: November 29, 2024
Chief Complaint: Pulmonary Follow Up and Dyspnea Follow Up
Subjective:
Chest continues to feel better, less oxygen requirements, less dyspnea on exertion, no chest pain, productive cough, abdominal pain, or leg swelling
Review of Systems
General: Other (Per HPI)
Objective Data
Data Reviewed
Vital Signs / I&O:
Vital Signs
Temp Pulse Resp BP Pulse Ox
97.2 F 73 21 140/86 94
11/29/24 07:40 11/29/24 08:19 11/29/24 08:19 11/29/24 08:19 11/29/24 08:19
Intake and Output
11/28/24 11/29/24 11/30/24
06:59 06:59 06:59
Intake Total 480 / 480 480 / 480 480 / 480
Output Total 490 / 490 1300 / 1300 400 / 400
Balance -10 / -10 -820 / -820 80 / 80
SaO2: 94
Nasal Cannula flow liters per minute: 3
Physical Exam
General: Respiratory Distress (n) and Comfortable
HEENT: Normocephalic
Cardiovascular: Regular Rhythm
Respiratory: Clear, Wheeze (n), Crackles ( rare basilar), Rhonchi (n), Non-Labored Respirations, Accessory Resp Muscle Use (n) and Stridor (n)
GI: Soft and Non Distended
Neurology: Awake, Alert and AO x 3
Skin: Warm, Dry, Good Color, Cyanosis (n) and Jaundice (n)
Labs/Micro/Reports
Lab Data
11/29/24 05:06
11/29/24 05:06
--- NOTE | 2024-11-29 10:04 | W.PN.NEPH.PH ---
Today's Communication / Plan
-
follow BMP
Assessment/Plan
-
IMP:
Acute hypoxic respiratory failure with hemoptysis
Acute diffuse alveolar hemorrhage (DAH)
NESTOR with CKD 3-baseline cr 1.1-1.4, suspect acute pulmonary�renal syndrome
Biopsy-proven FSGS 2021
baseline weakly positive PR3
Acute blood loss anemia secondary to alveolar hemorrhage.
Microcytosis
GERD
Plan:
await biopsy
prednisone continues
would use atovaquone 1500mg daily for prophylaxis instead of bactrim
add protonix
follow BMP
dc planning ok from renal standpoint
has rheum OV thursday
-
-
Date of Service: November 29, 2024
CC / HPI / ROS
-
Chief Complaint:
Acute kidney injury
History of Present Illness:
Creatinine better at 2.8
Hemodynamically stable
on high dose prednisone for ANCA vasculitis
Hemoglobin stable
Review of Systems:
no hemoptysis
Nonoliguric
No chest pain
Labs
-
Labs:
WBC 15.9 10^3/uL (4.8-10.8) H 11/29/24 05:06
RBC 3.38 10^6/uL (4.70-6.10) L 11/29/24 05:06
Hgb 8.7 g/dL (13.0-18.0) L 11/29/24 05:06
Hct 26.8 % (39.0-52.0) L 11/29/24 05:06
Plt Count 376 10^3/uL (130-400) 11/29/24 05:06
Sodium 137 mmol/L (135-145) 11/29/24 05:06
Potassium 4.6 mmol/L (3.5-5.1) 11/29/24 05:06
Chloride 108 mmol/L (98-107) H 11/29/24 05:06
Carbon Dioxide 20 mmol/L (22-30) L 11/29/24 05:06
BUN 67 mg/dl (9-20) H 11/29/24 05:06
Creatinine 2.8 mg/dL (0.7-1.3) H 11/29/24 05:06
eGFR 26.82 11/29/24 05:06
Glucose 112 mg/dl (70-99) H 11/29/24 05:06
Calcium 8.1 mg/dl (8.4-10.2) L 11/29/24 05:06
Axi-C-Hgineswoxly Pept 243 pg/ml 11/22/24 04:08
Albumin 2.5 g/dl (3.5-5.0) L 11/23/24 02:27
Physical Exam
-
Vital Signs:
Vital Signs
Temp Pulse Resp BP Pulse Ox
97.2 F 73 21 140/86 94
11/29/24 07:40 11/29/24 08:19 11/29/24 08:19 11/29/24 08:19 11/29/24 10:02
Cardiovascular:: Regular rate and rhythm
Respiratory:: Bilateral: CTA
Lung Excursion:: Normal
Abdomen:: Nontender and Soft
Bowel Sounds:: Normal
Extremity Edema:: None: Bilateral:
[2024-11-29] MEDS: PROTONIX 40 MG PO (11:04)
--- NOTE | 2024-11-29 15:41 | W.PN.HOSP.TC ---
Today's Communication/Plan
-
Has been weaned off and remains off supplemental oxygen today.
Increase activity and monitor for another 24 hours
Status post renal biopsy.
Follow pathology.
Continue prednisone.
Continue PCP prophylaxis with atovaquone.
Assessment / Plan
Assessment / Plan
#Renal pulmonary syndrome. Acute hypoxic respiratory failure secondary to diffuse alveolar hemorrhage
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
-Clinical pattern however is not totally consistent with Chuck's
-Planning for renal biopsy on 11/28 to obtain formal diagnosis
-S/p IV steroid, now on oral regimen of 80 mg prednisone daily
-Anticipate he will need a long steroid taper pending OP Rituxan
-QuantiFERON gold ordered, with intermediate probability
-Consider PJP prophylaxis for prolonged steroid taper. Appropriate action would be atovaquone (NESTOR/CKD with contraindication to TMP sulfa)
-See below for more detail
#Nephritic syndrome
#NESTOR on CKD 3
-Previous diagnosis of FSGS with renal biopsy in 2021; baseline creatinine 1.5
-Presented with hemoptysis and creatinine up to 3.5; microscopic hematuria and proteinuria on UA
-Serology returned positive for anti-MD-3/C ANCA concerning for GPA
-Was started on steroid regimen with improved pulmonary status
-Renal function has remained stable, Cr in the range of 3.0-3.5
-Trend daily BMP and UOP and avoid nephrotoxins strictly
-Plan for renal biopsy on 11/28/2024
-Plan for OP rituximab
#Acute hypoxemic respiratory failure
#Diffuse alveolar hemorrhage
#Hemoptysis
-Due to renal pulmonary syndrome as above; required 50 L high flow upon arrival
-Had significant hemoptysis though did not qualify as massive; did not require intubation
-Had dramatic response to steroids and was weaned from 50 L down to 4 L O2
-On exam his lungs sound clear, no signs of respiratory distress
-Has been transition to oral steroid regimen with plan to taper
-Remains on empiric antibiotic regimen to complete 7 days (day 4/7)
-Continue to promote OOB activity, incentive spirometer
-Quantify hemoptysis when present
-SpO2 goal >90%
#Acute blood loss anemia
-Secondary to diffuse alveolar hemorrhage and hemoptysis
-Hemoglobin was as low as 6.5, received PRBCs with hemoglobin up to 8.3 today
-Hemoptysis is minimal to resolved, anticipate CBC will stabilize
-SCDs for DVT prophylaxis, avoid AC and antiplatelet as possible
-Microcytosis on labs, will order iron studies and B vitamin panel
-Continue to monitor daily CBC, hemoglobin goal >7
#Chronic GERD
-No known history of erosive disease or Ramirez's
-Home regimen includes as needed Pepcid
#Obesity
-BMI in the range of 29 of 30, steroids may make this worse in the short-term
#Leukocytosis
-Secondary to demargination from steroid
-No active fevers, on antibiotics as above
-Trend CBC interventricular
#Loose stools
-Likely secondary to antibiotics; nursing states does not qualify for C. difficile criteria
-Will start probiotic while completing antibiotic regimen
-Monitor bowel movements and consider stool studies if worsening watery stool
DVT prophylaxis: SCDs
Diet: Regular
CODE STATUS: Full code
Anticipated Discharge: 24 - 48 hours
Subjective/Interval History
-
Date of Service: November 29, 2024
Objective Data
-
Labs:
Laboratory Results
11/29/24
05:06
WBC 15.9 H
Hgb 8.7 L
Hct 26.8 L
Plt Count 376
Sodium 137
Potassium 4.6
Chloride 108 H
Carbon Dioxide 20 L
BUN 67 H
Creatinine 2.8 H
Glucose 112 H
Calcium 8.1 L
Vital Signs:
Vital Signs
Temp Pulse Resp BP Pulse Ox
97.6 F 62 20 143/92 92
11/29/24 11:55 11/29/24 12:00 11/29/24 12:00 11/29/24 12:00 11/29/24 12:00
I&O
11/28/24 11/29/24 11/30/24
06:59 06:59 06:59
Intake Total 480 / 480 480 / 480 480 / 480
Output Total 490 / 490 1300 / 1300 400 / 400
Balance -10 / -10 -820 / -820 80 / 80
Physical Exam
-
General: Well Developed, No Apparent Distress and Obese
HEENT: Normocephalic, Atraumatic and Moist Mucous Membranes
Respiratory: Clear to Auscultation and Non Labored Respirations
Cardiac: Regular Rhythm and S1/S2; Negative Murmur, Rub or Gallop
GI: Soft, Nontender, Nondistended and Normal Bowel Sounds
Musculoskeletal: No Clubbing, No Cyanosis and No Edema
Skin: Warm, Dry and Normal Turgor; Negative Rash
Neuro: AO x 3 and Nonfocal/Grossly Intact; Negative Tremors
Psych: Calm
--- NOTE | 2024-11-29 16:09 | PTCARENOTE ---
Patient AOx3. NSR-sinus nimesh on monitor. Patient on RA SpO2 greater than 92%. Bandaid from kidney biopsy in medial back C/D/I. Assist x1 when OOB. Patient tolerating regular diet. Patient brought outside via wheelchair per order on monitor for
approx 10 minutes. VSS. Patients at bedside. Call oconnell within reach, bed in lowest position, and bed of wheels locked.
[2024-11-30] VITALS: BP 118/83
[2024-11-30 02:00] VITALS: BP 101/70
--- NOTE | 2024-11-30 02:34 | PTCARENOTE ---
assumed care of patient. pt is AAOx3, able to make needs known. VSS. 92% on RA. no c/o pain, minimal SOB. care ongoing.
[2024-11-30 03:58] LABS: Hematocrit 26.8 % (39.0-52.0); Hemoglobin 8.8 g/dL (13.0-18.0); Mean Corp Hgb Conc. 32.8 g/dL (33.0-37.0); Mean Corpuscular Volume 79.3 fL (80.0-94.0); Mean Platelet Volume 10.6 fL (7.4-10.4); Platelet Count 367 10^3/uL (130-400); Red Blood Cell Count 3.38 10^6/uL (4.70-6.10); Red Cell Dist. Width 16.1 % (11.5-14.5); White Blood Cell Count 18.4 10^3/uL (4.8-10.8)
[2024-11-30 04:00] VITALS: BP 130/96
[2024-11-30 04:26] LABS: Blood Urea Nitrogen 68 mg/dl (9-20); Calcium 8.2 mg/dl (8.4-10.2); Carbon Dioxide 19 mmol/L (22-30); Chloride 109 mmol/L (98-107); Estimated Creatinine Clearance 38 ml/min; Glucose 105 mg/dl (70-99); Potassium 4.8 mmol/L (3.5-5.1); Sodium 136 mmol/L (135-145); eGFR 24.69
[2024-11-30 06:00] VITALS: BP 124/81
[2024-11-30] MEDS: MEPRON SUSPENSION 1500 MG PO (08:33)
[2024-11-30] MEDS: SODIUM BICARBONATE 650 MG PO (08:33)
[2024-11-30] MEDS: PROTONIX 40 MG PO (08:33)
[2024-11-30] MEDS: VISBIOME 2 CAP PO (08:34)
[2024-11-30] MEDS: DELTASONE 80 MG PO (08:34)
[2024-11-30] MEDS: MUCINEX 600 MG PO (08:34)
[2024-11-30 08:47] VITALS: BP 132/97
--- NOTE | 2024-11-30 09:02 | W.PN.PUL.V3 ---
Today's Communication / Plan
-
Oxygen weaned to room air-no need for supplemental oxygen at time of discharge
Continue prednisone and PJP prophylaxis
Biopsy pending
Stable for potential discharge from a pulmonary perspective
Assessment
-
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 Notes sinus
symptoms as well. Saw OP care team and obtained CXR showing PNA. Sent to ER. notes patient started having hemoptysis as well at home [employer]. On arrival, noted to be 94% and requiring 2 L. COVID test was negative, flu test was negative. He had
a white count of 19,000, hemoglobin was 8.1 platelet count 363. BUN/creatinine were notable for being 42 and 3.5 respectively. D-dimer was elevated. Patient had a bilateral lower extremity Doppler studies that were negative for DVT. CT chest wo
performed due to CKD, extensive PNA noted. Hb notably dropped from 8.1 to 6.5. We are consulted for evaluation.
Acute hypoxic respiratory failure
Acute diffuse alveolar hemorrhage (DAH)
Hemoptysis, cough/productive
SOB
Abnormal CT scan
Suspect acute autoimmune flare
NESTOR on CKD
Acute blood loss anemia 2/2 DAH
Conditions present [employer]
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
s/p renal biopsy 2021
Microscopic hematuria
ANCA anti-SD-3 antibody positive
Positive EARNEST (antinuclear antibody)
Seasonal allergies
Overweight
Plan
Respiratory failure secondary to probable diffuse alveolar hemorrhage/ANCA-pulmonary renal syndrome
Wean supplemental options-now on room air
Rest and exercise oximetry 11/29/2024-did not desaturate below 90% on room air-no need for supplemental oxygen at time of discharge
Incentive spirometry.
Quantify yyfqygkria-cyfognxj-nred taper
Nebulizers if needed.
Mucolytic's continue
Status post pulse steroids.
Prednisone 80 mg daily..
Add PJP prophylaxis-consider atovaquone as Bactrim may be inappropriate with renal failure.
IVIG/plasmapheresis could be considered if there is life-threatening diffuse alveolar hemorrhage
Follow radiographically
Renal biopsy 11/28/24-pending
Nephrology following-correspondence reviewed-also reviewed personally with Dr. Norman on 11/29/2024.
Suspect a GI related to ANCA associated/SD 3 positive vasculiPR
DVT prophylaxis recommended-Now quite mobile, walking and out of bed vasculitis
Nutrition
Increase activity/physical therapy
Reviewed with at the bedside
Stable for proposed discharge from a pulmonary perspective
Will need outpatient pulmonary evaluation in our office for PFTs and 6MWT
Diagnostic Data
Chest X-Ray: 11/21/24- Bilateral opacities including patchy opacities, most prominent in the right upper lobe, at least in part suggesting pneumonia/pneumonitis.
CT Scan: CHEST 11/21/24- Bilateral parenchymal airspace opacities, slightly greater on the right compared to the left, and these opacities relatively spare the periphery of both lungs. Main differential considerations of pneumonia and/or alveolar
hemorrhage, and findings may represent a combination of these processes. Pulmonary alveolar proteinosis is also a condition that is reported to have relative sparing the periphery of both lungs. No evidence for significant pleural effusion. No
evidence for significant pericardial effusion.
AP 05/10/24- 1 mm nonobstructing calculus in the lower pole of the left kidney. No right nephrolithiasis. No obstructive uropathy. Multilevel lumbar spondylosis with minimal 2 mm grade 1 retrolisthesis of L5 relative to S1. Lung cases are clear.
Duplex 11/21/24- No evidence of deep venous thrombosis bilaterally.
.
Subjective Data
-
Date of Service:
Date of Service: November 30, 2024
Chief Complaint: Pulmonary Follow Up and Dyspnea Follow Up
Subjective:
Feels better every day, now on room air for nearly 2 days, ambulating without significant desaturations, minimal mucus production-'old blood', no chest pain or abdominal pain
Review of Systems
General: Other (Per HPI)
Objective Data
Data Reviewed
Vital Signs / I&O:
Vital Signs
Temp Pulse Resp BP Pulse Ox
97.9 F 67 20 124/81 94
11/30/24 03:45 11/30/24 08:00 11/30/24 08:00 11/30/24 06:00 11/30/24 08:00
Intake and Output
11/29/24 11/30/24 12/01/24
06:59 06:59 06:59
Intake Total 480 / 480 960 / 960
Output Total 1300 / 1300 800 / 800
Balance -820 / -820 160 / 160
SaO2: 94
Nasal Cannula flow liters per minute: 3
Physical Exam
General: Respiratory Distress (n) and Comfortable
HEENT: Normocephalic
Cardiovascular: Regular Rhythm
Respiratory: Clear, Wheeze (n), Crackles ( rare basilar), Rhonchi (n), Non-Labored Respirations, Accessory Resp Muscle Use (n) and Stridor (n)
GI: Soft and Non Distended
Neurology: Awake, Alert and AO x 3
Skin: Warm, Dry, Good Color, Cyanosis (n) and Jaundice (n)
Labs/Micro/Reports
Lab Data
11/30/24 03:45
11/30/24 03:45
--- NOTE | 2024-11-30 10:10 | CM ---
CM following re: discharge planning.
Reviewed pt's chart,met with pt and pt's spouse at bedside.
Pt reports he feels very well and ready to return back home today. pt is independent with functional ability [employer]. No after care VN services indicated.
D/C plan: hoe no needs. Spouse to transport
--- NOTE | 2024-11-30 11:12 | W.PN.NEPH.PH ---
Today's Communication / Plan
-
ok for d/c
Assessment/Plan
-
IMP:
Acute hypoxic respiratory failure with hemoptysis
Acute diffuse alveolar hemorrhage (DAH)
NESTOR with CKD 3-baseline cr 1.1-1.4, suspect acute pulmonary�renal syndrome
Biopsy-proven FSGS 2021
baseline weakly positive PR3
Acute blood loss anemia secondary to alveolar hemorrhage.
Microcytosis
GERD
Plan:
discussed about prelim biopsy report -only 6 glom present and 2 had crescentic necrosis, IFTA 50%?-full report yet to finalize
prednisone continues
cont atovaquone 1500mg daily for prophylaxis instead of bactrim
cont protonix for GI PPX while on seroids
cr is up today-need to trend
follow BMP in 3-4 days
f/u Dr Nicholas
has rheum OV thursday
-
-
Date of Service: November 30, 2024
CC / HPI / ROS
-
Chief Complaint:
Acute kidney injury
History of Present Illness:
Creatinine
Hemodynamically stable
on high dose prednisone for ANCA vasculitis
Hemoglobin stable
Review of Systems:
no hemoptysis
Nonoliguric
No chest pain
Labs
-
Labs:
WBC 18.4 10^3/uL (4.8-10.8) H 11/30/24 03:45
RBC 3.38 10^6/uL (4.70-6.10) L 11/30/24 03:45
Hgb 8.8 g/dL (13.0-18.0) L 11/30/24 03:45
Hct 26.8 % (39.0-52.0) L 11/30/24 03:45
Plt Count 367 10^3/uL (130-400) 11/30/24 03:45
Sodium 136 mmol/L (135-145) 11/30/24 03:45
Potassium 4.8 mmol/L (3.5-5.1) 11/30/24 03:45
Chloride 109 mmol/L (98-107) H 11/30/24 03:45
Carbon Dioxide 19 mmol/L (22-30) L 11/30/24 03:45
BUN 68 mg/dl (9-20) H 11/30/24 03:45
Creatinine 3.0 mg/dL (0.7-1.3) H 11/30/24 03:45
eGFR 24.69 11/30/24 03:45
Glucose 105 mg/dl (70-99) H 11/30/24 03:45
Calcium 8.2 mg/dl (8.4-10.2) L 11/30/24 03:45
Ucz-V-Jaiuuwskqhl Pept 243 pg/ml 11/22/24 04:08
Albumin 2.5 g/dl (3.5-5.0) L 11/23/24 02:27
Physical Exam
-
Vital Signs:
Vital Signs
Temp Pulse Resp BP Pulse Ox
97.3 F 56 22 132/97 95
11/30/24 07:55 11/30/24 08:47 11/30/24 08:47 11/30/24 08:47 11/30/24 09:23
Cardiovascular:: Regular rate and rhythm
Respiratory:: Bilateral: CTA
Lung Excursion:: Normal
Abdomen:: Nontender and Soft
Bowel Sounds:: Normal
Extremity Edema:: None: Bilateral:
[2024-11-30 12:38] VITALS: BP 131/68
--- NOTE | 2024-11-30 13:35 | W.DS.TRANS ---
DC Summary - Chief Of Surgery
-
Discharge Instructions:
Discharge Diagnosis/Procedures Renal pulmonary syndrome with DAH
Diet Regular
Instructions:
Stand-Alone Forms:
Changes to Home Medications: Yes
Discharge Medications:
DC Medications w/original date entered in [employer]
fluticasone propionate 50 mcg/actuation nasal spray,suspension 1 spray intranasal DAILY Allergies 09/17/24
diphenhydramine HCl 50 mg capsule 50 mg PO HSPRN PRN inflammation/sleep 11/21/24
loratadine 10 mg tablet (Claritin) 10 mg PO DAILYPRN PRN inflammation 11/21/24
Lactobac/Bifidobac [Visbiome] 2 cap PO DAILY #60 ea 11/30/24
atovaquone 750 mg/5 mL oral suspension 1,500 mg (10 mL) PO DAILY #210 mL 11/30/24
guaifenesin 600 mg tablet, extended release 12 hr 600 mg PO Q12 #60 tabs 11/30/24
pantoprazole 40 mg tablet,delayed release 40 mg PO DAILY #30 tabs 11/30/24
prednisone 20 mg tablet 80 mg (4 x 20 mg) PO DAILY #120 tabs 11/30/24
sodium bicarbonate 650 mg tablet 650 mg PO BID #60 tabs 11/30/24
Home Medication Changes
Prednisone
Atovaquone
Pending Results: Yes
Additional Pending Results:
Renal biopsy
--- NOTE | 2024-12-01 10:06 | PN.CDI ---
CDI
- -
CDI:
Physician Documentation Request
Admit Date: 11/21/24 21:31
Dear Doctor Jessica,
Please review the following and provide your response in the progress notes.
Clinical Indicators:
The diagnosis of Pneumonia was included in the signed chest Xray 11/25/24.
Additional clinical indicators in the chart include:
Pt admitted with cough/SOB found to have pulmonary -renal syndrome /Acute Hypoxic Respiratory failure
Documented per H&P,' SOB - Cough, patchy opacities, hypoxia concerning for pneumonia. Has WBC of 19 which raises PNA suspicion...ceftriaxone/azithromycin IV .....'
Pulmonary consult, ' : 11/21/24- Bilateral opacities including patchy opacities, most prominent in the right upper lobe, at least in part suggesting pneumonia/pneumonitis.'
CXR 11/25,' Bilateral pulmonary opacities again seen suggesting pneumonia, stable on the left and improved/decreased on the right...'
Per MAR was treated with Zithromax IV /Rocephin IV from 11-22-11/28
Discharge summary, 'patient was found to have diffuse pulmonary infiltrates..'
Discharge med list 11/30,' Augmentin 875-125 mg tablet 1 tab PO BID Infection...Azithromycin 250mg tablet Po daily Infection..'
Please update the status of the documented Pneumonia in H&P :
Pneumonia -resolved
Pneumonia still being monitored/treated
Pneumonia Ruled out
Other ( please specify)
Use of terms such as suspected, likely, concern for, or probable are acceptable for a diagnosis that is being evaluated, monitored or treated as if it exists and can be coded in the inpatient setting, when documented at the time of discharge.
Thank you,
Anette Williamson RN
CDI Specialist
[facility] [facility]
Please use your independent medical judgment in providing your response.
== END 2024-11-30 14:14 | disposition home or self-care (01) | DRG 545 ==
LOC: IMU 21:31
PROVIDERS: Internal Medicine; Nurse Practitioner Gerontology; Physician Assistant; Radiology Diagnostic Radiology; Specialist; Student in an Organized Health Care Education/Training Program; ADMITTING PHYSICIAN Internal Medicine; ATTENDING PHYSICIAN Internal Medicine; EMERGENCY PHYSICIAN Emergency Medicine; FAMILY PHYSICIAN Family Medicine; OTHER PHYSICIAN Internal Medicine
PROC: 30233N1 Transfusion of Nonautologous Red Blood Cells into Peripheral Vein, Percutaneous Approach (ICD-10-PCS; 2024-11-22)
PROC: 5A0945A Assistance with Respiratory Ventilation, 24-96 Consecutive Hours, High Flow/Velocity Cannula (ICD-10-PCS; 2024-11-23)
PROC: 0TB03ZX Excision of Right Kidney, Percutaneous Approach, Diagnostic (ICD-10-PCS; 2024-11-28)
DX: M31.0 Hypersensitivity angiitis (principal); J96.01 Acute respiratory failure with hypoxia; D62 Acute posthemorrhagic anemia; R04.2 Hemoptysis; N17.9 Acute kidney failure, unspecified; J84.01 Alveolar proteinosis; M31.31 Wegener's granulomatosis with renal involvement; N18.30 Chronic kidney disease, stage 3 unspecified; I77.82 Antineutrophilic cytoplasmic antibody [ANCA] vasculitis; M47.816 Spondylosis without myelopathy or radiculopathy, lumbar region; R76.8 Other specified abnormal immunological findings in serum; J30.2 Other seasonal allergic rhinitis; N05.1 Unspecified nephritic syndrome with focal and segmental glomerular lesions; K21.9 Gastro-esophageal reflux disease without esophagitis; E66.3 Overweight; Z68.30 Body mass index [BMI] 30.0-30.9, adult; Z86.16 Personal history of COVID-19; Z11.52 Encounter for screening for COVID-19
CPT/HCPCS: 36415; 50200; 51798; 71045; 71046; 71250; 76700; 76942; 80048; 80053; 80076; 81003; 81015; 82570; 82607; 82728; 82746; 83010; 83516; 83540; 83550; 83605; 83615; 83880; 84155; 84156; 84165; 84300; 85014; 85018; 85025; 85027; 85045; 85379; 85610; 85652; 86038; 86140; 86160; 86225; 86430; 86431; 86480; 86704; 86705; 86706; 86803; 86850; 86900; 86901; 86920; 87070; 87086; 87205; 87340; 87389; 87449; 87502; 87811; 87899; 88305; 93005; 93306; 93970; 96365; 96375; 97116; 97162; 99152; 99285; P9016

== ENCOUNTER → 2025-03-08 13:21 | Outpatient (REF) | payer BC, SELFPAY | LOC: RAD 13:21 | PROVIDERS: ATTENDING PHYSICIAN Nurse Practitioner Family; FAMILY PHYSICIAN Family Medicine | DX: I77.82 Antineutrophilic cytoplasmic antibody [ANCA] vasculitis (principal) | CPT/HCPCS: 71046 ==